=== PATIENT | female | born 1975 | race Caucasian/White ===

== ENCOUNTER → 2017-09-10 13:13 | Outpatient (CLI) | payer OTHER, SELFPAY ==
--- NOTE | 2017-09-10 13:46 | US_ITS ---
US transvaginal HISTORY: Check IUD position ITS.REASON: IUD position ORDERING PHYSICIAN: Ha Dean MD PATIENT AGE: 42 years COMPARISON: None FINDINGS: The uterus is retroverted. IUD is visualized within the endometrial canal area. Endometrium measures 8 mm. The uterus is 8 x 3 x 4.5 cm. Right ovary is 2.7 x 2 cm. Left ovary is 2.8 x 2.4 cm. No cul-de-sac fluid. IMPRESSION: Retroverted uterus with IUD in place otherwise negative pelvic ultrasound
--- NOTE | 2017-09-10 13:46 | MM_ITS ---
. MM Dig screening mamm BI w/CAD CAD Screening ORDERING PHYSICIAN : Ha Dean MD PATIENT AGE: 42 years GENDER: Female COMPARISON: No Previous mammograms: For comparison INDICATION: Routine screening. No hormones. IUD. No new complaints. No previous studies.. Family history. Maternal & paternal grandmother with breast cancer TECHNIQUE: Standard CC and MLO images were obtained. R2 CAD reviewed. FINDINGS:. Baseline screening mammogram with no previous for comparison Mild to moderately dense breast tissue distributed mainly towards superior aspect of left & right breast. Mild asymmetry but no areas of significant concern. This tissue seems to dissipate from the MLO to the CC views in keeping with benign fibroglandular tissue. No dominant mass. No suspicious calcifications. No architectural distortion.. I recommend bilateral follow-up in one year ====IMPRESSION:===== No areas of significant concern. Follow-up in one year recommended and encouraged to better establish and confirm baseline BI-RADS Category: 1 Negative RECOMMENDED FOLLOW-UP: 1YR - 1 YEAR FOLLOW-UP (A letter has been sent to the patient regarding results of the study.)
== END ==
PROVIDERS: Family Provider Physician Assistant; PCP Nurse Practitioner Family; Visit Provider Nurse Practitioner Obstetrics & Gynecology
DX: Z12.31 Encounter for screening mammogram for malignant neoplasm of breast (principal); Z97.5 Presence of (intrauterine) contraceptive device
CPT/HCPCS: 76830; 77067

== ENCOUNTER → 2018-01-06 11:44 | Outpatient (REF) | payer OTHER, SELFPAY ==
[2018-01-06 17:44] LABS: Basophils # 0.1 K/mm3 (0-0.2); Eosinophils # 0.1 K/mm3 (0.0-0.4); Eosinophils % 1.2 % (0.1-12.0); Hematocrit 44.1 % (37.0-47.0); Hemoglobin 13.7 g/dL (12.2-16.2); Lymphocytes # 2.6 K/mm3 (0.7-4.5); Lymphocytes % 26.9 K/mm3 (10-50); Mean Corpuscular HGB Conc 31.1 g/dL (31.8-35.4); Mean Corpuscular Hemoglobin 27.4 pg (27.0-31.2); Mean Corpuscular Volume 87.9 fl (81-99); Mean Platelet Volume 10.4 fl (7.4-10.4); Monocytes # 0.3 K/mm3 (0.1-1.0); Monocytes % 3.1 % (1.7-9.3); Neutrophils # 6.7 K/mm3 (1.8-7.8); Neutrophils % 67.9 % (37.0-80.0); Platelet Count 297 K/mm3 (142-424); Red Blood Count 5.01 M/mm3 (4.20-5.40); Red Cell Distribution Width 12.7 % (11.5-17.5); White Blood Count 9.8 K/mm3 (4.8-10.8)
[2018-01-06 18:38] LABS: Alanine Aminotransferase 25 U/L (12-78); Albumin Level 3.6 gm/dL (3.4-5.0); Albumin/Globulin Ratio 0.9 (1.1-1.8); Alkaline Phosphatase 128 U/L (46-116); Aspartate Amino Transferase 13 U/L (15-37); Bilirubin,Total 0.2 mg/dL (0.2-1.0); Blood Urea Nitrogen 6 mg/dL (7-18); Carbon Dioxide 27 mmol/L (21.0-32.0); Chloride 104 mmol/L (98-107); Cholesterol 151 mg/dL (140-200); Estimated Glomerular Filt Rate 110 ml/min (>60); Free Thyroxine Index 2.3 ug/dL (5.93-13.13); GFR (African American) 133 ML/MIN (>60); Globulin 3.9 gm/dl (1.3-3.2); Glucose 53 mg/dL (74-106); HDL Cholesterol 30 mg/dL (29-89); LDL Cholesterol 101 mg/dL (0-130); Sodium 139 mmol/L (136-145); T4 (Thyroxine) 7.6 ug/dl (4.7-13.3); Total Protein,Serum 7.5 gm/dL (6.4-8.2); Triglycerides 100 mg/dL (30-200); Triiodothryronine (T3) Uptake 30 % (31-39); VLDL Cholesterol 20 mg/dL (0-40)
[2018-01-08 17:10] LABS: FSH 6.8 mIU/mL (.); LH 4.5 mIU/mL (.); Vitamin D 25 Hydroxy 36.2 ng/mL (30.0-100.0)
[2018-01-13 06:14] LABS: Estrogen 157 pg/mL (.)
[2018-01-13 06:15] LABS: Testosterone, Total, LC/MS 28.3 ng/dL (.)
== END ==
LOC: LAB 11:44
PROVIDERS: Visit Provider Physician Assistant
DX: F32.9 Major depressive disorder, single episode, unspecified (principal)
CPT/HCPCS: 80053; 80061; 82652; 82672; 83001; 83002; 84403; 84436; 84443; 84479; 85025

== ENCOUNTER → 2018-07-26 17:53 | Outpatient (CLI) | payer OTHER, SELFPAY ==
[2018-07-26 18:06] LABS: Basophils # 0.1 K/mm3 (0-0.2); Basophils % 1.2 % (0.1-2.0); Eosinophils # 0.1 K/mm3 (0.0-0.4); Eosinophils % 1.1 % (0.1-12.0); Hematocrit 43.1 % (37.0-47.0); Lymphocytes # 2.6 K/mm3 (0.7-4.5); Lymphocytes % 25.8 % (10-50); Mean Corpuscular HGB Conc 32.5 g/dL (31.8-35.4); Mean Corpuscular Hemoglobin 28.2 pg (27.0-31.2); Mean Corpuscular Volume 86.8 fl (81-99); Mean Platelet Volume 10.1 fl (7.4-10.4); Monocytes # 0.4 K/mm3 (0.1-1.0); Monocytes % 3.6 % (1.7-9.3); Neutrophils # 6.8 K/mm3 (1.8-7.8); Neutrophils % 68.3 % (37.0-80.0); Platelet Count 305 K/mm3 (142-424); Red Blood Count 4.96 M/mm3 (4.20-5.40); Red Cell Distribution Width 13.3 % (11.5-17.5); White Blood Count 9.9 K/mm3 (4.8-10.8)
[2018-07-26 21:51] LABS: Alanine Aminotransferase 26 U/L (12-78); Albumin Level 3.5 gm/dL (3.4-5.0); Albumin/Globulin Ratio 0.9 (1.1-1.8); Alkaline Phosphatase 140 U/L (46-116); Aspartate Amino Transferase 10 U/L (15-37); Bilirubin,Total 0.3 mg/dL (0.2-1.0); Blood Urea Nitrogen 8 mg/dL (7-18); Calcium 9.6 mg/dL (8.5-10.1); Carbon Dioxide 25 mmol/L (21.0-32.0); Chloride 102 mmol/L (98-107); Chol/HDL Ratio 5.1 (1-3.5); Cholesterol 149 mg/dL (140-200); Creatinine,Serum 0.59 mg/dL (0.55-1.02); Estimated Glomerular Filt Rate 111 ml/min (>60); GFR (African American) 135 ML/MIN (>60); Glucose 94 mg/dL (74-106); HDL Cholesterol 29 mg/dL (29-89); LDL Cholesterol 100 mg/dL (0-130); Sodium 138 mmol/L (136-145); T4 (Thyroxine) 8.5 ug/dl (4.7-13.3); Thyroid Stimulating Hormone 2.92 uIU/ml (0.358-3.740); Total Protein,Serum 7.5 gm/dL (6.4-8.2); Triglycerides 100 mg/dL (30-200); VLDL Cholesterol 20 mg/dL (0-40)
[2018-07-28 08:44] LABS: Vitamin D 25 Hydroxy 36.6 ng/mL (30.0-100.0)
[2018-07-29 06:13] LABS: Vitamin B12 443 pg/mL (232-1245)
== END ==
PROVIDERS: Visit Provider Physician Assistant
DX: F41.9 Anxiety disorder, unspecified (principal); M25.552 Pain in left hip
CPT/HCPCS: 80053; 80061; 82607; 82652; 84436; 84443; 85025

== ENCOUNTER → 2019-01-26 13:41 | Outpatient (CLI) | payer OTHER, SELFPAY ==
[2019-01-26 14:28] LABS: Alanine Aminotransferase 17 U/L (12-78); Albumin Level 3.1 gm/dL (3.4-5.0); Albumin/Globulin Ratio 0.8 (1.1-1.8); Alkaline Phosphatase 117 U/L (46-116); Anion Gap 12.2 mEq/L (5-15); Aspartate Amino Transferase 8 U/L (15-37); Bilirubin,Total 0.2 mg/dL (0.2-1.0); Blood Urea Nitrogen 5 mg/dL (7-18); Calcium 9.1 mg/dL (8.5-10.1); Carbon Dioxide 25 mmol/L (21.0-32.0); Chloride 106 mmol/L (98-107); Chol/HDL Ratio 4.8 (1-3.5); Cholesterol 135 mg/dL (140-200); Creatinine,Serum 0.53 mg/dL (0.55-1.02); Estimated Glomerular Filt Rate 126 ml/min (>60); GFR (African American) 152 ML/MIN (>60); Globulin 3.9 gm/dl (1.3-3.2); Glucose 82 mg/dL (74-106); HDL Cholesterol 28 mg/dL (29-89); LDL Cholesterol 87 mg/dL (0-130); Potassium 4.2 mmoL/L (3.5-5.1); Sodium 139 mmol/L (136-145); T4 (Thyroxine) 6.2 ug/dl (4.7-13.3); Thyroid Stimulating Hormone 7.28 uIU/ml (0.358-3.740); Triglycerides 102 mg/dL (30-200); VLDL Cholesterol 20 mg/dL (0-40)
[2019-01-28 06:13] LABS: Vitamin B12 397 pg/mL (232-1245); Vitamin D 25 Hydroxy 38.1 ng/mL (30.0-100.0)
[2019-01-28 06:14] LABS: Folate 6.8 ng/mL (>3.0)
== END ==
PROVIDERS: Visit Provider Physician Assistant
DX: F32.9 Major depressive disorder, single episode, unspecified (principal)
CPT/HCPCS: 80053; 80061; 82607; 82652; 82746; 84436; 84443

== ENCOUNTER → 2019-04-20 11:05 | Outpatient (CLI) | payer OTHER, SELFPAY ==
--- NOTE | 2019-04-20 11:14 | XR_ITS ---
PROCEDURE: XR FOOT LT MIN 3V CLINICAL INDICATION: Left foot pain Lateral foot pain and bruising COMPARISON: XR FOOT LT MIN 3V from 04/12/2019 FINDINGS: No fracture or dislocation. No lytic or blastic change. There is normal mineralization. The joint spaces are well-preserved. No significant degenerative/arthritic changes. No erosive changes evident. Other findings:None. IMPRESSION: No acute findings. Dictated by: Max Gray MD 04/20/2019 13:00 Electronically signed by Max Gray MD in [place] 04/20/2019 13:00
== END ==
PROVIDERS: PCP Emergency Medicine; Visit Provider Physician Assistant
DX: M79.672 Pain in left foot (principal); R06.2 Wheezing
CPT/HCPCS: 73630

== ENCOUNTER 2019-04-20 11:14 | Outpatient (RCR) | payer OTHER, SELFPAY | END 2019-04-20 11:30 | disposition home or self-care (01) | LOC: PT 11:14 | PROVIDERS: Visit Provider Emergency Medicine | DX: M25.572 Pain in left ankle and joints of left foot (principal) | CPT/HCPCS: 97760 ==

== ENCOUNTER → 2019-05-02 13:38 | Outpatient (CLI) | payer OTHER, SELFPAY ==
[2019-05-02 14:35] VITALS: PULSE 79; PULSE 80
== END ==
PROVIDERS: PCP Physician Assistant; Visit Provider Physician Assistant
DX: R06.2 Wheezing (principal)
CPT/HCPCS: 94060; 94640

== ENCOUNTER → 2019-07-07 07:22 | Outpatient (CLI) | payer OTHER, SELFPAY ==
--- NOTE | 2019-07-07 | CA_ITS ---
APPROVED REPORT Exam: Pharmacologic Technologist: Usha Ornelas, Ht: 5 ft 5 in Wt: 190 lbs BSA: 1.94 m2 HR: 70 bpm BP: 124/83 mmHg Rhythm: NSR Medical History Medical History: HTN, Hyperlipidemia, No history of CAD Medications: Lisinopril,,,,, Levothyroxine,,,,, Asa,,,,, Lexapro,,,,, Atorvastatin,,,,, Plavix,,,,, Allergies: latex Cardiac Risk Factors: HTN, Hyperlipidemia, FHX of CAD, Smoking Stress Test Details Test: LEXISCAN HR Resting HR: 84 bpm Max Heart Rate (APMHR): 176 bpm Max HR Achieved: 115 bpm Target HR (85% APMHR): 149 bpm % of APMHR: 65 Recovery HR: 98 bpm BP Resting BP: 124/83 mmHg Max BP: 133/79 mmHg Recovery BP: 123.0/77.0 mmHg ECG Resting ECG: NORMAL SINUS RHYTHM Clinical Reason for Termination: Completed Protocol Exercise duration: 04:01 min Highest Stage Achieved: Exercise capacity: 1.0 METs Stress ECG Conclusion LEXISCAN INFUSION COMPLETED. NO CHEST OR ARRHYTHMIAS. < 1.5MM ST SEGMENT DEPRESSION/CHANGES. NON-DIAGNOSTIC. Test Summary REST . . . . . . . Sitting REST . . . . . . . Sitting REST 05:40 . . 84 . 124/ 83 . . Stage 1 . . . . . . . Cardiolite injected Stage 1 01:00 . . 111 . . . . Stage 2 01:00 . . 112 . 125/ 78 . . Stage 3 01:00 . . 107 . 128/ 79 . . Stage 4 01:00 . . 103 . . . . Stage 4 01:01 . . 102 . . . Stop exercise at 04:01 RECOVERY 01:00 . . 92 . . . . RECOVERY 02:00 . . 85 . 133/ 79 . . RECOVERY 03:00 . . 89 . 125/ 86 . . RECOVERY 04:00 . . 90 . 125/ 86 . . RECOVERY 04:30 . . 79 . 133/ 87 . . Electronically signed by : Miguel Ángel Roman, 07/07/2019 12:45:32
--- NOTE | 2019-07-07 07:23 | CA_ITS ---
APPROVED REPORT EXAM: Comprehensive 2D, Doppler, and color-flow Echocardiogram Cut Tobacco Bulker: Traci Dobbs RVT Ht: 5 ft 5 in Wt: 200lbs BSA: 1.98 BP: 138/80 mmHg Indications: Chest Pain, COPD, Shortness of Breath, Dyspnea, Hyperlipidemia, Hypertension,Abn EKG, Smoker,Hx NE,GERD 2D Dimensions LVOT 1.65 cm (M/F) 1.5-2.5 M-Mode Dimensions RVDd 1.82 cm (0.9-2.6) LVDd 4.64 cm (3.5-5.7) LVDs 3.08 cm (3.5-5.7) IVSd 0.68 cm (0.6-1.1) PWd 0.84 cm (0.6-1.1) EF (Teich) 62.40% FS 33.60% EDV (Teich) 99.30 mL ESV (Teich) 37.30 mL LV Diastology E/A Ratio 0.71 Mitral Valve MV A Velocity 83.00 (40-130 cm/s) Left Ventricle Left atrium is mildly enlarged, left ventricle is normal size, mild concentric left ventricular hypertrophy, visually estimated ejection fraction 45%, there is moderate hypokinesis involving the distal septum and anterior apical wall, inferior basal wall. Grade 1 diastolic dysfunction seen without tissue Doppler evidence of raise left atrial pressure. Right Ventricle Right atrium and right ventricular normal size and contractility. Aortic Valve Aortic valve is minimally thickened and fibrosed, there is no aortic stenosis or aortic insufficiency. Mitral Valve Mitral valve is grossly normal, there is mild mitral regurgitation. Tricuspid Valve Tricuspid valve is grossly normal, there is mild tricuspid regurgitation. Pulmonic Valve Pulmonic valve is poorly visualized. Great Vessels Aortic root is normal size. Pericardium No significant pericardial effusion noted. Conclusion 1. Mildly enlarged left atrium, normal left ventricular size, mild concentric left ventricular hypertrophy, visually estimated ejection fraction 45% with multiple segmental wall motion abnormalities described above, grade 1 diastolic dysfunction seen without tissue Doppler evidence of raise left atrial pressure. 2. Mild mitral and tricuspid regurgitation. 3. No significant pericardial effusion noted. Electronically signed by : Miguel Ángel Roman, 07/08/2019 19:10:48
--- NOTE | 2019-07-07 07:28 | NM_ITS ---
APPROVED REPORT Exam: Nuclear Stress Test Indication: chest pain and short of breath Patient Location: Outpatient Stress Tech: Anju Ceci [place] Tech:EMILIE Cartagena RT(R)(N) Ht: 5 ft 5 in Wt: 190 lbs Bra Size: 38d HR: 70 bpm BP: 124/83 mmHg BSA: 1.94 m2 BMI: 31.6 History: chest pain and short of breath Procedure: Patient received a 0.4 mg of intravenous Lexiscan, resting heart rate 70 bpm, resting blood pressure 124/83 mmHg, with Lexiscan maximum heart rate achived was 110 bpm which is Less than 85 % of the maximum predicted heart rate and blood pressure was 125/78 mmHg. With Lexiscan, patient denied any complaint of chest pain. Electrocardiogram Resting electrocardiogram showed sinus rhythm, with Lexiscan there is less than 1.[address] segment depression noted from the baseline EKG. The EKG portion of the Lexiscan Myoview is nondiagnostic. Cardiac Stress and Resting SPECT Images: Cardiac Stress and Resting SPECT images were obtained using technetium 99m Myoview 31.2 mCi stress and 10.65 mCi at rest. Gated SPECT with analysis of segmental wall motion and calculation of the ejection fraction also done. Cardiac stress and resting SPECT images show a fixed defect involving the inferior apical and apical wall consistent with area of myocardial scarring without significant jeb-infarct ischemia. Computer derived ejection fraction is over 65% with mild inferior apical wall hypokinesis. Right ventricle is normal size and contractility. Conclusion: 1. The EKG portion of the Lexiscan Myoview is nondiagnostic. 2. Scintigraphic evidence of small area of myocardial scarring involving the inferior apical and apical wall. Computer derived ejection fraction is over 65% with segmental wall motion abnormality described above, right ventricle is normal size and contractility. 3. Abnormal Lexiscan Myoview study. Electronically signed by : Miguel Ángel Roman, 07/07/2019 12:48:29
--- NOTE | 2019-07-07 09:49 | HMH.ITSHM ---
Current Home Medications as stated by this patient Radha Gonzalez or cash applications representative. [] lisinopril atorvastatin plavix ASA LEVOTHYROXINE LEXAPRO CLOZAPINE
== END ==
PROVIDERS: PCP Physician Assistant; Visit Provider Internal Medicine Cardiovascular Disease
DX: R07.2 Precordial pain (principal); R00.2 Palpitations; R06.09 Other forms of dyspnea; R60.9 Edema, unspecified; R94.31 Abnormal electrocardiogram [ECG] [EKG]; E66.9 Obesity, unspecified; E78.49 Other hyperlipidemia; I10 Essential (primary) hypertension; K21.9 Gastro-esophageal reflux disease without esophagitis; F32.1 Major depressive disorder, single episode, moderate; F41.9 Anxiety disorder, unspecified; I25.2 Old myocardial infarction
CPT/HCPCS: 78452; 93017; 93306; A9502; J2785

== ENCOUNTER → 2019-07-14 13:39 | Outpatient (CLI) | payer OTHER, SELFPAY ==
[2019-07-14 15:29] LABS: Anion Gap 15.3 mEq/L (5-15); Blood Urea Nitrogen 9 mg/dL (7-18); Calcium 9.1 mg/dL (8.5-10.1); Carbon Dioxide 26 mmol/L (21.0-32.0); Chloride 104 mmol/L (98-107); Creatinine,Serum 0.75 mg/dL (0.55-1.02); Estimated Glomerular Filt Rate 84 ml/min (>60); GFR (African American) 102 ML/MIN (>60); Glucose 79 mg/dL (74-106); Potassium 4.3 mmoL/L (3.5-5.1); Sodium 141 mmol/L (136-145)
== END ==
PROVIDERS: Visit Provider Internal Medicine Cardiovascular Disease
DX: R07.9 Chest pain, unspecified (principal); R00.2 Palpitations; R06.00 Dyspnea, unspecified
CPT/HCPCS: 36415; 80048

== ENCOUNTER → 2019-08-16 13:52 | Outpatient (CLI) | payer OTHER, SELFPAY ==
[2019-08-16 15:36] LABS: Anion Gap 10.7 mEq/L (5-15); Blood Urea Nitrogen 6 mg/dl (7-17); Calcium 9.9 mg/dl (8.4-10.2); Carbon Dioxide 28 mmol/L (22.0-30.0); Chloride 99 mmol/L (98-107); Estimated Glomerular Filt Rate 91 ml/min (>60); GFR (African American) 110 ML/MIN (>60); Glucose 95 mg/dl (74-100); Potassium 3.7 mmoL/L (3.5-5.1); Sodium 134 mmol/L (136-145)
[2019-08-16 15:44] LABS: NT Pro Brain Natriuretic Pep. 50.8 pg/mL (0-125)
== END ==
LOC: LAB 13:53 → SL 14:06
PROVIDERS: PCP Physician Assistant; Visit Provider Internal Medicine Cardiovascular Disease
DX: I10 Essential (primary) hypertension (principal); E78.5 Hyperlipidemia, unspecified; R06.00 Dyspnea, unspecified; E66.9 Obesity, unspecified; I25.2 Old myocardial infarction; G47.33 Obstructive sleep apnea (adult) (pediatric); R06.83 Snoring; R40.0 Somnolence; R63.5 Abnormal weight gain
CPT/HCPCS: 36415; 80048; 83880; 95806

== ENCOUNTER → 2019-09-01 12:20 | Outpatient (CLI) | payer OTHER, SELFPAY ==
--- NOTE | 2019-09-01 12:38 | US_ITS ---
PROCEDURE: US THYROID CLINICAL INDICATION: enlarged thyroid Enlarged thyroid gland COMPARISON: No exams were available for comparison FINDINGS: Right lobe is 6.5 x 2.2 x 1.9 cm with diffuse heterogeneous echogenicity. There are multiple nodules present. A 17 by 19 x 12 mm hypoechoic nodules present in the upper pole which appears solid and well circumscribed. In the lower pole there is a 15 mm slightly hyperechoic nodule which is well-circumscribed. The left lobe is 5.5 x 1.9 x 2.2 cm. In the upper pole there is a 13 x 5 mm hypoechoic nodule posteriorly. The isthmus is enlarged at 8 mm. IMPRESSION: Heterogeneous enlarged thyroid gland consistent with goiter with 2 nodules on the right and 1 on the left the largest nodule on the right is a T rads level 4 moderately suspicious greater than 1.5 cm. Fine-needle aspiration with ultrasound guidance suggested Dictated by: Max Gray MD 09/01/2019 14:28 Electronically signed by Max Gray MD in [place] 09/01/2019 14:28
[2019-09-01 16:32] LABS: T4 (Thyroxine) 8.8 ug/dl (5.53-11.0)
[2019-09-01 16:45] LABS: Thyroid Stimulating Hormone 3.72 uIU/mL (0.465-4.68)
== END ==
PROVIDERS: PCP Physician Assistant; Visit Provider Nurse Practitioner Family
DX: E03.9 Hypothyroidism, unspecified (principal); E04.9 Nontoxic goiter, unspecified; E66.9 Obesity, unspecified; G47.33 Obstructive sleep apnea (adult) (pediatric); R53.83 Other fatigue; I49.9 Cardiac arrhythmia, unspecified
CPT/HCPCS: 36415; 76536; 84436; 84443

== ENCOUNTER → 2019-12-08 09:41 | Outpatient (CLI) | payer OTHER, SELFPAY ==
--- NOTE | 2019-12-08 09:46 | US_ITS ---
PROCEDURE: US FNA THYROID CLINICAL INDICATION: THYROID NODULE COMPARISON: No exams were available for comparison TECHNIQUE: Following obtaining informed consent, using aseptic technique and local anesthesia with buffered lidocaine, fine-needle aspiration was performed of the nodule of interest in the right lobe of the thyroid gland using sonographic guidance. 3 passes were made into the nodule with a 21-gauge needle. Specimen was given to cytology. FINDINGS: CYTOLOGY: Benign follicular nodule IMPRESSION: FNA demonstrates the solid-appearing nodule in the right lobe of the thyroid gland represent a benign follicular nodule. The patient tolerated the procedure well without evidence of immediate complications and left the ultrasound suite in stable condition. Dictated b Max Gray MD 01/26/2020 17:49 Mxa Gray MD in [place] 01/26/2020 17:49
== END ==
PROVIDERS: PCP Physician Assistant; Visit Provider Otolaryngology
DX: E04.1 Nontoxic single thyroid nodule (principal)
CPT/HCPCS: 10005; 76942

== ENCOUNTER 2021-01-07 10:51 | Emergency (ER) | payer OTHER, SELFPAY ==
[2021-01-07] VITALS (8 sets, daily range): BP systolic 103–163; BP diastolic 63–81; PULSE 60–86; RESP 18–21; TEMP 36.7; O2SAT 93–99; BMI 31.6
--- NOTE | 2021-01-07 11:02 | ECG_ITS ---
APPROVED REPORT Exam: Resting ECG HR:85 bpm ECG Measurements Heart Rate 85 AXES WY 158 P 53 QRSd 82 QRS 0 QT 360 T 28 QTc 428 Conclusion Normal sinus rhythm Low voltage QRS Borderline ECG Electronically signed by : Gomez Liang, 01/07/2021 22:08:55
--- NOTE | 2021-01-07 11:11 | XR_ITS ---
PROCEDURE: XR CHEST 2V CLINICAL HISTORY: chest pressure COMPARISON: No exams were available for comparison FINDINGS: The cardiomediastinal silhouette and pulmonary vascularity are within normal limits. The lungs are clear without infiltrates, suspicious nodules, or pleural effusions. No acute bony abnormalities. IMPRESSION: No acute findings. Dictated by: Cindy Forman 01/07/2021 11:43 Cindy Forman in [place] 01/07/2021 11:43
--- NOTE | 2021-01-07 11:24 | HMH.EDGENADL ---
ED Disposition Clinical Impression: Chest pain Qualifiers: Chest pain type: unspecified Qualified Code(s): R07.9 - Chest pain, unspecified Disposition: Home, Self-Care Condition on Discharge: Good Instructions: DI for Atypical Chest Pain Referrals: Kylie Cooley PA [Primary Care Provider] - - Critical Care Critical Care Time: No Attestation: On 01/07/21, the high probability of a clinically significant, sudden or life threatening deterioration of the following system(s) required my full and direct attention, intervention and personal management. The time I documented below is in addition to time spent performing reported procedures but includes the following listed in this critical care notation. Medical Decision Making - Medical Records Medical records reviewed: Yes: I reviewed the patient's medical records. - Dereck Inquiry Pt receiving controlled substance: No Vital Signs: 01/07/21 11:03 01/07/21 11:15 01/07/21 14:21 Temperature 98.0 F Temperature Source Oral Pulse Rate 84 73 Pulse Rate [Left Radial] 60 Respiratory Rate 18 21 Blood Pressure 127/81 Blood Pressure [Right Arm] 163/63 H Blood Pressure Mean 96 Blood Pressure Mean [Right Arm] 96 Blood Pressure Source Blood Pressure Source [Right Arm] Automatic Cuff Blood Pressure Position Blood Pressure Position [Right Arm] Sitting 02 Sat by Pulse Oximetry 99 93 L 97 Oxygen Delivery Method Room Air 01/07/21 14:30 01/07/21 15:01 01/07/21 15:30 Temperature Temperature Source Pulse Rate 75 71 86 Pulse Rate [Left Radial] Respiratory Rate 18 Blood Pressure 124/79 103/72 L 109/78 L Blood Pressure [Right Arm] Blood Pressure Mean 92 82 85 Blood Pressure Mean [Right Arm] Blood Pressure Source Blood Pressure Source [Right Arm] Blood Pressure Position Blood Pressure Position [Right Arm] 02 Sat by Pulse Oximetry 97 96 97 Oxygen Delivery Method Room Air 01/07/21 16:00 01/07/21 16:04 Temperature 98.0 F Temperature Source Oral Pulse Rate 78 78 Pulse Rate [Left Radial] Respiratory Rate 18 Blood Pressure 119/80 119/80 Blood Pressure [Right Arm] Blood Pressure Mean 93 Blood Pressure Mean [Right Arm] Blood Pressure Source Automatic Cuff Blood Pressure Source [Right Arm] Blood Pressure Position Sitting Blood Pressure Position [Right Arm] 02 Sat by Pulse Oximetry 98 Oxygen Delivery Method Room Air - Lab Data Lab Results 01/07/21 11:25: WBC 11.1 H, RBC 5.01, Hgb 14.3, Hct 42.8, MCV 85.3, MCH 28.5, MCHC 33.4, RDW 13.7, Plt Count 302, MPV 9.8, Neut % (Auto) 68.4, Lymph % (Auto) 25.9, Sandoval % (Auto) 3.1, Eos % (Auto) 0.8, Baso % (Auto) 1.7, Neut # (Auto) 7.6, Lymph # (Auto) 2.9, Sandoval # (Auto) 0.4, Eos # (Auto) 0.1, Baso # (Auto) 0.2 01/07/21 11:25: Sodium 139, Potassium 3.7, Chloride 105, Carbon Dioxide 27, Anion Gap 10.7, BUN 7, Creatinine 0.50 L, Estimated Creat Clear 193, Estimated GFR 133, Est GFR ( Amer) 161, Glucose 96, Calcium 9.2, Troponin I < 0.01 01/07/21 11:25: D-Dimer 0.41 01/07/21 14:10: Troponin I < 0.01 Result diagrams: 01/07/21 11:25 01/07/21 11:25 Orders (Tests/Meds): ED MEDICATIONS Discontinued Medications Generic Name Dose Route Start Last Admin Trade Name Shona PRN Reason Stop Dose Admin Aspirin 324 mg 01/07/21 11:11 01/07/21 11:28 Aspirin 81mg Chewable Tablet PO 01/07/21 11:12 324 mg ONCE ONE Administration Medical Decision Narrative: Patient to the ED today with chest pain and pressure. Differential diagnosis includes anxiety, ACS, pulmonary embolism, pneumonia, pericarditis, pericardial effusion. Patient's EKG interpreted shortly after arrival, normal sinus rhythm with no evidence of T wave inversion or ST elevation or depression, low concern for ischemia. Will order CBC CMP troponin 0 and 3-hour evaluation, chest x-ray, D-dimer. Patient offered pain medication and denies at this time, will continue to reasses
[2021-01-07 12:33] LABS: Basophils # 0.2 K/mm3 (0-0.2); Basophils % 1.7 % (0.1-2.0); Eosinophils # 0.1 K/mm3 (0.0-0.4); Eosinophils % 0.8 % (0.1-12.0); Hematocrit 42.8 % (37.0-47.0); Hemoglobin 14.3 g/dL (12.2-16.2); Lymphocytes # 2.9 K/mm3 (0.7-4.5); Lymphocytes % 25.9 % (10-50); Mean Corpuscular HGB Conc 33.4 g/dL (31.8-35.4); Mean Corpuscular Hemoglobin 28.5 pg (27.0-31.2); Mean Corpuscular Volume 85.3 fl (81-99); Mean Platelet Volume 9.8 fl (7.4-10.4); Monocytes # 0.4 K/mm3 (0.1-1.0); Monocytes % 3.1 % (1.7-9.3); Neutrophils # 7.6 K/mm3 (1.8-7.8); Neutrophils % 68.4 % (37.0-80.0); Platelet Count 302 K/mm3 (142-424); Red Blood Count 5.01 M/mm3 (4.20-5.40); Red Cell Distribution Width 13.7 % (11.5-17.5); White Blood Count 11.1 K/mm3 (4.8-10.8)
[2021-01-07 12:41] LABS: Chloride 105 mmol/L (98-107); Potassium 3.7 mmoL/L (3.5-5.1); Sodium 139 mmol/L (136-145)
[2021-01-07 12:44] LABS: Blood Urea Nitrogen 7 mg/dl (7-17); Carbon Dioxide 27 mmol/L (22.0-30.0); Creatinine Clearance Estimated 193 mL/min (50-200); Estimated Glomerular Filt Rate 133 ml/min (>60); GFR (African American) 161 ML/MIN (>60)
[2021-01-07 12:45] LABS: Calcium 9.2 mg/dl (8.4-10.2); Glucose 96 mg/dl (74-100)
[2021-01-07 12:48] LABS: D-Dimer 0.41 ug/mL (0.0-0.5)
[2021-01-07 13:00] LABS: Troponin I < 0.01 ng/ml (0.00-0.034)
[2021-01-07 14:09] LABS: Anion Gap 10.7 mEq/L (5-15)
[2021-01-07 14:45] LABS: Troponin I < 0.01 ng/ml (0.00-0.034)
== END 2021-01-07 16:11 | disposition home or self-care (01) ==
PROVIDERS: Emergency Provider Student in an Organized Health Care Education/Training Program; PCP Physician Assistant
DX: R07.9 Chest pain, unspecified (principal); J44.9 Chronic obstructive pulmonary disease, unspecified; F41.8 Other specified anxiety disorders; K21.9 Gastro-esophageal reflux disease without esophagitis; E78.5 Hyperlipidemia, unspecified; I10 Essential (primary) hypertension; E03.9 Hypothyroidism, unspecified; I25.2 Old myocardial infarction; Z79.899 Other long term (current) drug therapy
CPT/HCPCS: 36415; 71046; 80048; 84484; 85025; 85378; 93005; 99283

== ENCOUNTER 2021-05-24 21:55 | Emergency (ER) | payer OTHER, SELFPAY ==
[2021-05-24 21:56] VITALS: BP 142/93; PULSE 86; RESP 18; TEMP 36.9; O2SAT 96; BMI 31.6
--- NOTE | 2021-05-24 22:25 | HMH.EDEPIS ---
ED Disposition Clinical Impression: Epistaxis Disposition: Home, Self-Care Condition on Discharge: Good Instructions: DI for Nosebleed Additional Instructions: sit upper right tonight and remove packing in am Referrals: Kylie Cooley PA [Primary Care Provider] - - Critical Care Critical Care Time: No Attestation: On 05/24/21, the high probability of a clinically significant, sudden or life threatening deterioration of the following system(s) required my full and direct attention, intervention and personal management. The time I documented below is in addition to time spent performing reported procedures but includes the following listed in this critical care notation. Medical Decision Making - Medical Records Medical records reviewed: Yes: I reviewed the patient's medical records. - Dereck Inquiry Pt receiving controlled substance: No Vital Signs: 05/24/21 21:56 Temperature 98.4 F Temperature Source Oral Pulse Rate [Right] 86 Respiratory Rate 18 Blood Pressure [Right Arm] 142/93 H Blood Pressure Mean [Right Arm] 109 02 Sat by Pulse Oximetry 96 Epistaxis HPI - General Chief complaint: Epistaxis Stated complaint: NOSE BLEED Time Seen by Provider: 05/24/21 22:05 Mode of Arrival: Ambulatory Source of Information: Patient, Medical Record Limitations: No Limitations Description of Symptoms (Recalled from ER Triage Doc. by RN): pt c/o nosebleed that started 2 hrs ago - History of Present Illness HPI Narrative: atraumatic bilat nosebleed tonight on dual platelet therapy complaint: epistaxis Location: bilateral nostril Onset (ago): hour(s) Duration: intermittent Context: aspirin use Treatment prior to arrival: nose pinching - Related Data Previous Rx's Medication Instructions Recorded clopidogrel 75 mg tablet See Rx Instructions .ROUTE 09/19/20 .COMPLEX #90 tab aspirin 81 mg chewable tablet See Rx Instructions .ROUTE 12/19/20 .COMPLEX #90 tab atorvastatin 20 mg tablet 20 mg PO DAILY #30 tab 12/19/20 levothyroxine 50 mcg tablet See Rx Instructions .ROUTE 12/19/20 .COMPLEX #90 tab losartan 100 0.5 tab PO Q OTHER DAY #14 tab 02/22/21 mg-hydrochlorothiazide 25 mg tablet clonazepam 0.5 mg tablet 0.5 mg PO BID #60 tab 05/06/21 escitalopram oxalate 10 mg tablet 10 mg PO DAILY #90 tab 05/06/21 hydroxyzine HCl 25 mg tablet 25 mg PO TID PRN #90 tab 05/21/21 Allergies Allergy/AdvReac Type Severity Reaction Status Date / Time latex Allergy Unknown I-RASH Verified 04/09/21 11:41 [facility] History - Hepatitis A Screen Drug use history?: No High risk sexual behaviors?: No History of sexually transmitted infection?: No Currently employed?: No Childcare worker?: No Do you have indoor plumbing?: Yes Do you have electricity?: Yes Attestation statement:: This patient has been screened for Hepatitis A risk factors. I have reviewed the patient's past medical history: Yes Medical History: Reports:: Anxiety, Chronic Obstructive Pulmonary Disease (COPD), Deep Vein Thrombosis, Depression, Gastroesophageal Reflux Disease(GERD), Hyperlipidemia, Hypertension, Myocardial Infarction Denies:: Diabetes Mellitus Type 1, Diabetes Mellitus Type 2 Other Medical History: Reports: Hypothyroidism, Thyroid Disease Comment: heart attack, 2009 Other Surgeries: Yes: Cardiac Catheterization Amputation: No Fractures: No Comment: Heart Cath 2009 - Social History Smoking Status: Current every day smoker Tobacco Type: cigarettes # Packs/Day (cigarettes): 1 Alcohol Intake: never Alcohol Intake Frequency:: holidays/special occasions only Substance Use Type: denies use Occupational Status: employed Housing: house Household Members: spouse - Psychiatric History Pschychiatric History:: Reports:: Anxiety, Depression Family Hx:: Cancer, Diabetes, Hypertension, Hyperlipidemia, Thyroid Disorder, Heart Attack, Stroke Comment: Sister-OK with stent @44. Mother-Cancer ROS Obtained: Yes All systems reviewed
[2021-05-24 23:30] VITALS: BP 135/80; PULSE 75; RESP 18; TEMP 36.8; O2SAT 98
== END 2021-05-24 23:40 | disposition home or self-care (01) ==
PROVIDERS: Emergency Provider Emergency Medicine; PCP Physician Assistant
DX: R04.0 Epistaxis (principal); K21.9 Gastro-esophageal reflux disease without esophagitis; J44.9 Chronic obstructive pulmonary disease, unspecified; F17.210 Nicotine dependence, cigarettes, uncomplicated; F41.8 Other specified anxiety disorders; E03.9 Hypothyroidism, unspecified; Z79.899 Other long term (current) drug therapy
CPT/HCPCS: 30901; 99281

== ENCOUNTER → 2021-07-16 13:47 | Outpatient (CLI) | payer OTHER, SELFPAY ==
[2021-07-16 14:29] LABS: Basophils # 0.2 K/mm3 (0-0.2); Basophils % 1.6 % (0.1-2.0); Eosinophils # 0.1 K/mm3 (0.0-0.4); Eosinophils % 1.1 % (0.1-12.0); Hematocrit 46.9 % (37.0-47.0); Hemoglobin 14.7 g/dL (12.2-16.2); Lymphocytes # 2.8 K/mm3 (0.7-4.5); Lymphocytes % 23.9 % (10-50); Mean Corpuscular HGB Conc 31.4 g/dL (31.8-35.4); Mean Corpuscular Hemoglobin 28.8 pg (27.0-31.2); Mean Corpuscular Volume 91.8 fl (81-99); Mean Platelet Volume 11.5 fl (7.4-10.4); Monocytes # 0.4 K/mm3 (0.1-1.0); Monocytes % 3.3 % (1.7-9.3); Neutrophils # 8.1 K/mm3 (1.8-7.8); Platelet Count 369 K/mm3 (142-424); Red Blood Count 5.11 M/mm3 (4.20-5.40); Red Cell Distribution Width 13.7 % (11.5-17.5); White Blood Count 11.5 K/mm3 (4.8-10.8)
[2021-07-16 15:55] LABS: Alanine Aminotransferase 16 U/L (12-78); Albumin Level 4.2 g/dl (3.5-5.0); Albumin/Globulin Ratio 1.2 (1.1-1.8); Alkaline Phosphatase 98 U/L (38-126); Anion Gap 12.6 mEq/L (5-15); Aspartate Amino Transferase 22 U/L (14-36); Bilirubin,Total 0.4 mg/dl (0.2-1.3); Blood Urea Nitrogen 8 mg/dl (7-17); Calcium 9.7 mg/dl (8.4-10.2); Carbon Dioxide 25 mmol/L (22.0-30.0); Chloride 102 mmol/L (98-107); Chol/HDL Ratio 5.2 (1-3.5); Cholesterol 167 mg/dl (140-200); Estimated Glomerular Filt Rate 108 ml/min (>60); GFR (African American) 130 ML/MIN (>60); Globulin 3.4 g/dL (1.3-3.2); Glucose 95 mg/dl (74-100); HDL Cholesterol 32 mg/dl (40-60); Potassium 3.6 mmoL/L (3.5-5.1); Sodium 136 mmol/L (136-145); Total Protein,Serum 7.6 g/dl (6.3-8.2); Triglycerides 163 mg/dl (30-150); VLDL Cholesterol 33 mg/dL (0-40)
[2021-07-16 16:06] LABS: Direct LDL Cholesterol 114.58 mg/dL (100-129)
[2021-07-16 16:11] LABS: 25-OH Vitamin D, Total 24.2 ng/mL (30-100)
== END ==
PROVIDERS: Visit Provider Physician Assistant
DX: E03.9 Hypothyroidism, unspecified (principal); E55.9 Vitamin D deficiency, unspecified; Z79.899 Other long term (current) drug therapy
CPT/HCPCS: 80053; 80061; 82306; 84443; 85025

== ENCOUNTER → 2021-10-08 12:04 | Outpatient (CLI) | payer OTHER, SELFPAY ==
--- NOTE | 2021-10-08 12:07 | XR_ITS ---
FINAL REPORT CLINICAL HISTORY: bilateral knee pain FINDINGS: RIGHT KNEE 4 views were obtained. There is no acute fracture or dislocation. The joint spaces are intact. There is no soft tissue abnormality. IMPRESSION: No acute bony abnormality. Reviewed, Interpreted and Dictated by Harley Valera III, MD Transcribed by Maddie Hills Authenticated by Harley aVlera III, MD on 10/08/2021 02:02:54 PM [facility]
--- NOTE | 2021-10-08 12:07 | XR_ITS ---
FINAL REPORT CLINICAL HISTORY: bilateral knee pain COMPARISON: 04/12/2019 FINDINGS: LEFT KNEE 4 views were obtained. There is no acute fracture or dislocation. The joint spaces are intact. There is no soft tissue abnormality. IMPRESSION: No acute bony abnormality. Reviewed, Interpreted and Dictated by Harley Valera III, MD Transcribed by Maddie Hills Authenticated by Harley Valera III, MD on 10/08/2021 02:02:53 PM [facility]
== END ==
PROVIDERS: PCP Physician Assistant; Visit Provider Physician Assistant
DX: M25.562 Pain in left knee (principal); M25.561 Pain in right knee
CPT/HCPCS: 73564

== ENCOUNTER → 2022-01-03 06:11 | Outpatient (CLI) | payer OTHER, SELFPAY ==
[2022-01-02 17:26] LABS: Basophils # 0.1 K/mm3 (0-0.2); Eosinophils # 0.1 K/mm3 (0.0-0.4); Eosinophils % 0.9 % (0.1-12.0); Hematocrit 41.4 % (37.0-47.0); Hemoglobin 13.4 g/dL (12.2-16.2); Lymphocytes # 3.1 K/mm3 (0.7-4.5); Lymphocytes % 23.6 % (10-50); Mean Corpuscular HGB Conc 32.3 g/dL (31.8-35.4); Mean Corpuscular Hemoglobin 28.3 pg (27.0-31.2); Mean Corpuscular Volume 87.4 fl (81-99); Mean Platelet Volume 9.9 fl (7.4-10.4); Monocytes # 0.6 K/mm3 (0.1-1.0); Monocytes % 4.1 % (1.7-9.3); Neutrophils # 9.4 K/mm3 (1.8-7.8); Neutrophils % 70.5 % (37.0-80.0); Platelet Count 392 K/mm3 (142-424); Red Blood Count 4.74 M/mm3 (4.20-5.40); Red Cell Distribution Width 14.7 % (11.5-17.5); White Blood Count 13.3 K/mm3 (4.8-10.8)
[2022-01-02 17:35] LABS: Alanine Aminotransferase 17 U/L (12-78); Albumin Level 3.8 g/dl (3.5-5.0); Albumin/Globulin Ratio 1.1 (1.1-1.8); Alkaline Phosphatase 125 U/L (38-126); Anion Gap 12.5 mEq/L (5-15); Aspartate Amino Transferase 25 U/L (14-36); Blood Urea Nitrogen 5 mg/dl (7-17); Calcium 9.3 mg/dl (8.4-10.2); Carbon Dioxide 24 mmol/L (22.0-30.0); Chloride 104 mmol/L (98-107); Chol/HDL Ratio 4.4 (1-3.5); Cholesterol 136 mg/dl (140-200); Estimated Glomerular Filt Rate 133 ml/min (>60); GFR (African American) 161 ML/MIN (>60); Globulin 3.6 g/dL (1.3-3.2); Glucose 97 mg/dl (74-100); HDL Cholesterol 31 mg/dl (40-60); Potassium 3.5 mmoL/L (3.5-5.1); Sodium 137 mmol/L (136-145); Total Protein,Serum 7.4 g/dl (6.3-8.2); Triglycerides 110 mg/dl (30-150); VLDL Cholesterol 22 mg/dL (0-40)
[2022-01-02 17:42] LABS: Bilirubin,Total 0.1 mg/dl (0.2-1.3)
[2022-01-02 17:46] LABS: Direct LDL Cholesterol 87.76 mg/dL (100-129)
[2022-01-02 17:52] LABS: 25-OH Vitamin D, Total 45.6 ng/mL (30-100)
[2022-01-02 18:06] LABS: Thyroid Stimulating Hormone 4.17 uIU/mL (0.465-4.68)
[2022-01-02 18:25] LABS: Vitamin B12 311 pg/mL (239-931)
[2022-01-04 10:46] LABS: LH 5.7 mIU/mL (.); Progesterone 9.6 ng/mL (.); Testosterone,Total 25 ng/dL (4-50)
[2022-01-08 21:08] LABS: Estrogen 268 pg/mL (.)
== END ==
PROVIDERS: PCP Physician Assistant; Visit Provider Physician Assistant
DX: E03.9 Hypothyroidism, unspecified (principal); R68.82 Decreased libido; E66.9 Obesity, unspecified; Z68.33 Body mass index [BMI] 33.0-33.9, adult
CPT/HCPCS: 80053; 80061; 82306; 82607; 82672; 83001; 83002; 84144; 84403; 84443; 85025

== ENCOUNTER → 2023-02-20 10:48 | Outpatient (CLI) | payer OTHER, SELFPAY ==
--- NOTE | 2023-02-20 10:51 | MM_ITS ---
PROCEDURE INFORMATION: Exam: MG Bilateral Screening 3D Mammography Exam date and time: 02/20/2023 10:54 AM Age: 48 years old Clinical indication: Screening examination; . Family history of breast carcinoma. TECHNIQUE: Imaging protocol: Bilateral Screening tomosynthesis and 2D mammography including computer-aided detection (CAD) when performed. COMPARISON: MG [facility] MM Dig screening mamm BI w/CAD 09/10/2017 2:23 PM FINDINGS: MAMMOGRAPHY: Breast composition: The breasts are heterogeneously dense, which may obscure small masses. Mass: No suspicious masses. Architectural distortion: No suspicious distortion. Calcifications: No suspicious calcifications. Asymmetric density: None. Skin thickening: None. Axillary adenopathy: None. IMPRESSION: 1. No mammographic evidence of malignancy. Annual screening is recommended unless otherwise clinically indicated. 2. Given the reported risk factors for this patient, a breast cancer risk assessment may prove useful for further evaluation. ASSESSMENT: BI-RADS Category 1: Negative
== END ==
PROVIDERS: PCP Physician Assistant; Visit Provider Nurse Practitioner Obstetrics & Gynecology
DX: Z12.31 Encounter for screening mammogram for malignant neoplasm of breast (principal)
CPT/HCPCS: 77063; 77067

== ENCOUNTER → 2023-03-17 16:52 | Outpatient (CLI) | payer OTHER, SELFPAY ==
[2023-03-16 19:21] LABS: Basophils # 0.1 K/mm3 (0-0.2); Basophils % 0.9 % (0.1-2.0); Eosinophils # 0.1 K/mm3 (0.0-0.4); Hematocrit 48.8 % (37.0-47.0); Hemoglobin 15.3 g/dL (12.2-16.2); Lymphocytes # 2.7 K/mm3 (0.7-4.5); Lymphocytes % 28.7 % (10-50); Mean Corpuscular HGB Conc 31.2 g/dL (31.8-35.4); Mean Corpuscular Hemoglobin 27.5 pg (27.0-31.2); Mean Corpuscular Volume 88.2 fl (81-99); Mean Platelet Volume 12.1 fl (7.4-10.4); Monocytes # 0.4 K/mm3 (0.1-1.0); Monocytes % 4.5 % (1.7-9.3); Neutrophils # 6.2 K/mm3 (1.8-7.8); Neutrophils % 64.8 % (37.0-80.0); Platelet Count 282 K/mm3 (142-424); Red Blood Count 5.54 M/mm3 (4.20-5.40); Red Cell Distribution Width 13.5 % (11.5-17.5); White Blood Count 9.5 K/mm3 (4.8-10.8)
[2023-03-16 19:23] LABS: Alanine Aminotransferase 17 U/L (12-78); Albumin/Globulin Ratio 1.1 (1.1-1.8); Alkaline Phosphatase 123 U/L (38-126); Anion Gap 13.9 mEq/L (5-15); Aspartate Amino Transferase 23 U/L (14-36); Bilirubin,Total 0.4 mg/dl (0.2-1.3); Blood Urea Nitrogen 6 mg/dl (7-17); Calcium 9.3 mg/dl (8.4-10.2); Carbon Dioxide 25 mmol/L (22.0-30.0); Chloride 104 mmol/L (98-107); Estimated Glomerular Filt Rate 132 ml/min (>60); GFR (African American) 159 ML/MIN (>60); Globulin 3.8 g/dL (1.3-3.2); Glucose 88 mg/dl (74-100); Potassium 3.9 mmoL/L (3.5-5.1); Sodium 139 mmol/L (136-145); Total Protein,Serum 7.8 g/dl (6.3-8.2)
[2023-03-16 19:54] LABS: Thyroid Stimulating Hormone 0.46 uIU/mL (0.465-4.68)
== END ==
PROVIDERS: PCP Internal Medicine; Visit Provider Internal Medicine
DX: R53.83 Other fatigue (principal)
CPT/HCPCS: 80053; 84443; 85025

== ENCOUNTER 2023-07-02 06:22 | Emergency (ER) | payer OTHER, SELFPAY ==
[2023-07-02] VITALS (9 sets, daily range): BP systolic 116–184; BP diastolic 69–107; PULSE 76–104; RESP 16–22; TEMP 36.6; O2SAT 95–99; BMI 31.2
--- NOTE | 2023-07-02 06:23 | ECG_ITS ---
APPROVED REPORT Exam: Resting ECG HR:95 bpm ECG Measurements Heart Rate 95 AXES GA 160 P 38 QRSd 86 QRS 19 QT 341 T -2 QTc 394 Conclusion SINUS RHYTHM LOW QRS VOLTAGE IN PRECORDIAL LEADS [QRS DEFLECTION < 1.0 mV IN CHEST LEADS] NONSPECIFIC T-WAVE ABNORMALITY BORDERLINE ECG UNCONFIRMED REPORT Electronically signed by : Gomez Liang MD 07/02/2023 20:07:58
--- NOTE | 2023-07-02 06:30 | XR_ITS ---
FINAL REPORT CLINICAL HISTORY: chest pain, hypertension, hx mi COMPARISON: 01/01/2021 FINDINGS: Two views of the chest were obtained. The heart size and pulmonary vascularity are within normal limits. The mediastinum is normal. No acute pulmonary abnormality is identified. There is no pneumothorax. The bony thorax is intact. IMPRESSION: No active cardiopulmonary disease. Reviewed, Interpreted and Dictated by Harley Valera III, MD Transcribed by Shahana Wang Authenticated and [facility]
--- NOTE | 2023-07-02 06:30 | PC.NURSE ---
in room talking with patient at this time.
--- NOTE | 2023-07-02 06:34 | HMH.EDGENADL ---
Discharge Plan Disposition Patient Disposition: Home, Self-Care Prescriptions Prescriptions: No Action Mirena 21 mcg/24 hours (8 yrs) 52 mg intrauterine device 52 device intrauterine ONCE Patient Comments: inserted 07/31/2015 losartan 25 mg tablet 25 mg PO BID Qty: 60 5RF famotidine 40 mg tablet 40 mg PO DAILY Qty: 30 2RF albuterol sulfate [Proventil HFA] 90 mcg/actuation HFA aerosol inhaler 2 puff inhalation Q6H PRN (Reason: shortness of breath or wheezing) 30 Days Qty: 6.7 0RF Vraylar 1.5 mg capsule 1.5 mg PO DAILY Qty: 30 2RF Anoro Ellipta 62.5-25 mcg/actuation blister with device See Rx Instructions .ROUTE .COMPLEX Qty: 60 5RF Dose Instruction: INHALE 1 DOSE EVERY 24 HOURS Rx Instructions: INHALE 1 DOSE EVERY 24 HOURS aspirin 81 mg tablet,chewable See Rx Instructions .ROUTE .COMPLEX Qty: 90 3RF Dose Instruction: CHEW 1 TABLET ONCE A DAY FOR BLOOD THINNER. Rx Instructions: CHEW 1 TABLET ONCE A DAY FOR BLOOD THINNER. atorvastatin 20 mg tablet 20 mg PO DAILY Qty: 90 3RF clonazepam 0.5 mg tablet 0.5 mg PO BID Qty: 60 0RF cholecalciferol (vitamin D3) [Vitamin D3] 25 mcg (1,000 unit) capsule See Rx Instructions .ROUTE .COMPLEX Qty: 90 0RF Dose Instruction: TAKE 1 CAPSULE 1 TIME EACH DAY Rx Instructions: TAKE 1 CAPSULE 1 TIME EACH DAY cyanocobalamin (vitamin B-12) [Vitamin B-12] 5,000 mcg tablet, sublingual See Rx Instructions .ROUTE .COMPLEX Qty: 90 0RF Dose Instruction: TAKE 1 TABLET 1 TIME EACH DAY Rx Instructions: TAKE 1 TABLET 1 TIME EACH DAY thyroid (pork) [[place] Thyroid] 60 mg tablet See Rx Instructions .ROUTE .COMPLEX Qty: 30 2RF Dose Instruction: TAKE 1 TABLET 1 TIME EACH DAY FOR OVERACTIVE THYROID Rx Instructions: TAKE 1 TABLET 1 TIME EACH DAY FOR OVERACTIVE THYROID Referrals Follow up/Referrals: Kylie Cooley PA [Primary Care Provider] - See instructions Clinical Impressions Clinical Impression: Chest pain Discharge ED Provider: Basil Brock General Adult HPI <Basil Brock MD - Last Filed: 07/02/23 07:12> General Chief complaint: Chest Pain Stated complaint: chest pain Time Seen by Provider: 07/02/23 06:23 Mode of Arrival: Ambulatory Source of Information: Patient Limitations: No Limitations Description of Symptoms (Recalled from ER Triage Doc. by RN): pt c/o lt arm achy constant and episodes of chest heaviness x 2 weeks. History of Present Illness HPI narrative: 48-year-old female with history of prior UT, hypertension, anxiety presents with chest pain rating to her left side with associated shortness of breath for the last week or so. She reports that she has been hypertensive recently and had her losartan increased from 25-50 but she remains hypertensive. She is worried about her anxiety. Reports recent cough and shortness of breath and nausea. Denies any fever. Related Data Home Medications Medication Instructions Recorded Confirmed levonorgestrel 21 mcg/24 hours (8 52 device intrauterine ONCE 02/10/23 07/02/23 yrs) 52 mg intrauterine device (Mirena) Previous Rx's Medication Instructions Recorded famotidine 40 mg tablet 40 mg PO DAILY #30 tabs 12/03/21 umeclidinium 62.5 mcg-vilanterol See Rx Instructions .Route 03/28/22 25 mcg/actuation powdr for .COMPLEX #60 blisters inhalation (Anoro Ellipta) albuterol sulfate 90 mcg/actuation 2 puff inhalation Q6H PRN 08/27/22 aerosol inhaler (Proventil HFA) shortness of breath or wheezing 30 days #6.7 grams aspirin 81 mg chewable tablet See Rx Instructions .Route 02/10/23 .COMPLEX #90 tabs atorvastatin 20 mg tablet 20 mg PO DAILY #90 tabs 04/14/23 clonazepam 0.5 mg tablet 0.5 mg PO BID Anxiety #60 tabs 06/09/23 cholecalciferol (vitamin D3) 25 See Rx Instructions .Route 06/25/23 mcg (1,000 unit) capsule (Vitamin .COMPLEX #90 caps D3) cyanocobalamin (vitamin B-12) See Rx Instructions .Route 06/25/23 5,000 mcg sublingual tablet .COMPLEX #90 tabs (Vitamin B-12) thyroid (pork) 60 mg tablet See Rx Instructions .Route 06/26/23 ([place] Thyroid) .COMPLEX #30 tabs cariprazine 1.5 mg capsule 1.5 mg PO DAILY #30 caps 06/29/23 (Vraylar) losartan 25 mg tablet 25 mg PO BID #60 tabs 06/29/23 Allergies Allergy/AdvReac Type Severity Reaction Status Date / Time vortioxetine Allergy Intermediate Palpitation Verified 06/29/23 13:09 [From Trintellix] s latex Allergy Unknown I-RASH Verified 06/29/23 13:09 hydroxyzine [From Vistaril] AdvReac dizzy Verified 06/29/23 13:09 metoprolol AdvReac vomiting Verified 06/29/23 13:09 PFSH <Basil Brock MD - Last Filed: 07/02/23 07:12> [facility] Disclaimer: The information contained in this section may have been updated after the patient was seen, as this information can be updated by other users. Medical History Abnormal EKG Depression Dyspnea Edema GERD (gastroesophageal reflux disease) Heart attack 2009, due to blood clot History of UT (myocardial infarction) Hypothyroidism Radha clearly has hypothyroidism. Her TSH was quite low however on her measure last week. We will decrease thyroid medication. We will decrease to 60 mg/day. She is to follow-up with a TSH in approximately 2 to 4 weeks. Palpitations Surgical History H/O right heart catheterization 2010 Family History Other Cancer Coronary artery disease Heart attack Hyperlipidemia Hypertension Thyroid disorder Social History Smoking Status: Current every day smoker tobacco type: cigarettes packs per day: 1 alcohol intake: never substance use type: denies use current occupational status: employed Travel in the last 8 weeks: Inside the [place] household members: spouse housing: house current occupational exposures/hazards: No <Basil Brock MD - Last Filed: 07/02/23 07:12> ROS Obtained: Yes All systems reviewed & no additional complaints except as documented Physical Exam <Basil Brock MD - Last Filed: 07/02/23 07:12> General General appearance: alert and anxious Head Head exam: atraumatic and normocephalic Eye Eye exam: Present normal appearance, PERRL and EOMI ENT ENT exam: Present normal oropharynx and normal external ear exam Neck Neck exam: Present normal inspection and full ROM Chest Chest inspection: Present normal inspection and symmetric chest wall rise; Absent tenderness Respiratory Respiratory exam: Present normal lung sounds bilaterally; Absent respiratory distress Cardiovascular Cardiovascular exam: Present normal rhythm and tachycardia Abdominal Exam Abdominal exam: Present soft; Absent distention, tenderness or guarding Extremities Exam Extremities exam: Present normal inspection; Absent edema or joint swelling Back Exam Back exam: Present normal inspection; Absent tenderness Neurological Exam Neurological exam: Present alert and oriented X3; Absent motor sensory deficit Psychiatric Psychiatric exam: Present normal affect and normal mood Skin Skin exam: Present warm, dry and normal color Lymphatic Lymphatic Findings: no adenopathy Medical Decision Making <Basil Brock MD - Last Filed: 07/02/23 07:12> Medical Records Medical records reviewed: Yes I reviewed the patient's medical records. Dereck Inquiry Pt receiving controlled substance: No Dereck was queried for this patient: No Vital Signs: 07/02/23 06:22 07/02/23 06:26 07/02/23 07:00 Temperature 97.9 F Temperature Source Oral Pulse Rate 104 H 86 Pulse Rate [Right] 104 H Respiratory Rate 16 20 Blood Pressure 153/96 H Blood Pressure [Right Arm] 184/107 H Blood Pressure Mean [Right Arm] 132 02 Sat by Pulse Oximetry 99 95 Oxygen Delivery Method Room Air 07/02/23 07:30 07/02/23 08:00 07/02/23 08:30 Temperature Temperature Source Pulse Rate 86 78 78 Pulse Rate [Right] Respiratory Rate 22 20 19 Blood Pressure 165/97 H 123/75 116/69 Blood Pressure [Right Arm] Blood Pressure Mean [Right Arm] 02 Sat by Pulse Oximetry 96 98 99 Oxygen Delivery Method 07/02/23 09:00 Temperature Temperature Source Pulse Rate 76 Pulse Rate [Right] Respiratory Rate 18 Blood Pressure 145/92 H Blood Pressure [Right Arm] Blood Pressure Mean [Right Arm] 02 Sat by Pulse Oximetry 98 Oxygen Delivery Method Room Air Lab Data Lab results reviewed: Yes I reviewed the patient's lab results. Lab Results 07/02/23 06:30: WBC 12.1 H, RBC 5.15, Hgb 15.0, Hct 45.2, MCV 87.9, MCH 29.2, MCHC 33.2, RDW 14.1, Plt Count 321, MPV 9.8, Neut % (Auto) 69.5, Lymph % (Auto) 24.1, [place] % (Auto) 4.0, Eos % (Auto) 1.3, Baso % (Auto) 1.1, Neut # (Auto) 8.4 H, Lymph # (Auto) 2.9, [place] # (Auto) 0.5, Eos # (Auto) 0.2, Baso # (Auto) 0.1, D-Dimer 0.44, Sodium 136, Potassium 3.3 L, Chloride 104, Carbon Dioxide 27, Anion Gap 8.3, BUN 5 L, Creatinine 0.60, Estimated Creat Clear 154, Estimated GFR 107, Est GFR ( Amer) 129, Glucose 117 H, Calcium 8.7, Total Bilirubin 0.4, AST 25, ALT 20, Alkaline Phosphatase 112, Troponin I < 0.01, Total Protein 8.2, Albumin 4.0, Globulin 4.2 H, Albumin/Globulin Ratio 1.0 L, Serum HCG, Qual Negative 07/02/23 06:46: SARS-CoV-2 (PCR) Not detected, Influenza A Untype (PCR) Not detected, Influenza Type B (PCR) Not detected 07/02/23 09:10: Troponin I < 0.01 07/02/23 06:30 07/02/23 06:30 Orders (Tests/Meds): ORDERS Category Date Time Status Chest XR 2 view (NOT portable) [XR chest 2V] Stat Exams 07/02/23 06:30 Completed Complete Blood Count Auto Diff Stat Lab 07/02/23 06:30 Completed Comprehensive Metabolic Panel Stat Lab 07/02/23 06:30 Completed D-Dimer Stat Lab 07/02/23 06:30 Completed HCG Qualitative, Serum Stat Lab 07/02/23 06:30 Completed Rapid PCR Covid and Flu A/B Stat Lab 07/02/23 06:46 Completed Troponin I Q3H Lab 07/02/23 09:10 Completed Troponin I Q3H Lab 07/02/23 12:30 Ordered Troponin I Stat Lab 07/02/23 06:30 Completed Medical Decision Narrative: 48-year-old female, history of hypertension, prior UT presents with blood pressure for the last week or so with associated chest pain and shortness of breath.. History was obtained via conversation with patient, chart review, family. On arrival, patient is afebrile, mildly hypertensive, satting appropriately on room air, mildly tachycardic., moving all extremities spontaneously. Full physical exam performed and significant for no significant physical exam abnormalities. Differential includes but is not limited to ACS, PE, asymptomatic hypertension, anxiety, hypertension, pneumonia. Workup initiated including CBC CMP D-dimer troponin EKG chest x-ray. On re-evaluation, patient [remains afebrile, HD stable.] Laboratory workup independently interpreted by me and significant for mild leukocytosis, mild hypokalemia, initial troponin negative. D-dimer negative. Imaging independently interpreted by me and significant for chest x-ray without focal opacity or abnormality.. See radiology read for full review of final results. EKG independently interpreted by me and significant for sinus rhythm, rate of 95, no concerning ST changes. Patient placed in ED obs at 6:45 AM for serial troponins and reassessment to avoid potentially unnecessary admission. Care handed off to oncoming physician. <Wilmar Riddle MD - Last Filed: 07/02/23 09:56> Vital Signs: 07/02/23 06:22 07/02/23 06:26 07/02/23 07:00 Temperature 97.9 F Temperature Source Oral Pulse Rate 104 H 86 Pulse Rate [Right] 104 H Respiratory Rate 16 20 Blood Pressure 153/96 H Blood Pressure [Right Arm] 184/107 H Blood Pressure Mean [Right Arm] 132 02 Sat by Pulse Oximetry 99 95 Oxygen Delivery Method Room Air 07/02/23 07:30 07/02/23 08:00 07/02/23 08:30 Temperature Temperature Source Pulse Rate 86 78 78 Pulse Rate [Right] Respiratory Rate 22 20 19 Blood Pressure 165/97 H 123/75 116/69 Blood Pressure [Right Arm] Blood Pressure Mean [Right Arm] 02 Sat by Pulse Oximetry 96 98 99 Oxygen Delivery Method 07/02/23 09:00 Temperature Temperature Source Pulse Rate 76 Pulse Rate [Right] Respiratory Rate 18 Blood Pressure 145/92 H Blood Pressure [Right Arm] Blood Pressure Mean [Right Arm] 02 Sat by Pulse Oximetry 98 Oxygen Delivery Method Room Air Lab Data Lab results reviewed: Yes I reviewed the patient's lab results. Lab Results 07/02/23 06:30: WBC 12.1 H, RBC 5.15, Hgb 15.0, Hct 45.2, MCV 87.9, MCH 29.2, MCHC 33.2, RDW 14.1, Plt Count 321, MPV 9.8, Neut % (Auto) 69.5, Lymph % (Auto) 24.1, [place] % (Auto) 4.0, Eos % (Auto) 1.3, Baso % (Auto) 1.1, Neut # (Auto) 8.4 H, Lymph # (Auto) 2.9, [place] # (Auto) 0.5, Eos # (Auto) 0.2, Baso # (Auto) 0.1, D-Dimer 0.44, Sodium 136, Potassium 3.3 L, Chloride 104, Carbon Dioxide 27, Anion Gap 8.3, BUN 5 L, Creatinine 0.60, Estimated Creat Clear 154, Estimated GFR 107, Est GFR ( Amer) 129, Glucose 117 H, Calcium 8.7, Total Bilirubin 0.4, AST 25, ALT 20, Alkaline Phosphatase 112, Troponin I < 0.01, Total Protein 8.2, Albumin 4.0, Globulin 4.2 H, Albumin/Globulin Ratio 1.0 L, Serum HCG, Qual Negative 07/02/23 06:46: SARS-CoV-2 (PCR) Not detected, Influenza A Untype (PCR) Not detected, Influenza Type B (PCR) Not detected 07/02/23 09:10: Troponin I < 0.01 Orders (Tests/Meds): ORDERS Category Date Time Status Chest XR 2 view (NOT portable) [XR chest 2V] Stat Exams 07/02/23 06:30 Completed Complete Blood Count Auto Diff Stat Lab 07/02/23 06:30 Completed Comprehensive Metabolic Panel Stat Lab 07/02/23 06:30 Completed D-Dimer Stat Lab 07/02/23 06:30 Completed HCG Qualitative, Serum Stat Lab 07/02/23 06:30 Completed Rapid PCR Covid and Flu A/B Stat Lab 07/02/23 06:46 Completed Troponin I Q3H Lab 07/02/23 09:10 Completed Troponin I Q3H Lab 07/02/23 12:30 Ordered Troponin I Stat Lab 07/02/23 06:30 Completed HEART Score History (anamnesis): Slightly suspicious ECG: Non-specific disturbance Age: 45-65 years Risk factors: 1-2 risk factors Troponin: </= normal limit HEART Score: 3 Medical Decision Narrative: 48-year-old female, history of hypertension, prior UT presents with blood pressure for the last week or so with associated chest pain and shortness of breath.. History was obtained via conversation with patient, chart review, family. On arrival, patient is afebrile, mildly hypertensive, satting appropriately on room air, mildly tachycardic., moving all extremities spontaneously. Full physical exam performed and significant for no significant physical exam abnormalities. Differential includes but is not limited to ACS, PE, asymptomatic hypertension, anxiety, hypertension, pneumonia. Workup initiated including CBC CMP D-dimer troponin EKG chest x-ray. On re-evaluation, patient [remains afebrile, HD stable.] Laboratory workup independently interpreted by me and significant for mild leukocytosis, mild hypokalemia, initial troponin negative. D-dimer negative. Imaging independently interpreted by me and significant for chest x-ray without focal opacity or abnormality.. See radiology read for full review of final results. EKG independently interpreted by me and significant for sinus rhythm, rate of 95, no concerning ST changes. Patient placed in ED obs at 6:45 AM for serial troponins and reassessment to avoid potentially unnecessary admission. Care handed off to oncoming physician. This Dr. Riddle I took over from Dr. Brock at 7 AM pending second troponin. D-dimer undetectably low not consistent with pulmonary embolism chest x-ray unremarkable EKG I reviewed with no evidence of ischemia serial troponins negative patient stable for outpatient discharge Procedures <Basil Brock MD - Last Filed: 07/02/23 07:12> Risk/Benefits of Procedure(s) Were Explained: Yes Critical Care <Basil Brock MD - Last Filed: 07/02/23 07:12> Critical Care Time Critical Care Time: No
[2023-07-02 06:45] LABS: Basophils # 0.1 K/mm3 (0-0.2); Basophils % 1.1 % (0.1-2.0); Eosinophils # 0.2 K/mm3 (0.0-0.4); Eosinophils % 1.3 % (0.1-12.0); Hematocrit 45.2 % (37.0-47.0); Lymphocytes # 2.9 K/mm3 (0.7-4.5); Lymphocytes % 24.1 % (10-50); Mean Corpuscular HGB Conc 33.2 g/dL (31.8-35.4); Mean Corpuscular Hemoglobin 29.2 pg (27.0-31.2); Mean Corpuscular Volume 87.9 fl (81-99); Mean Platelet Volume 9.8 fl (7.4-10.4); Monocytes # 0.5 K/mm3 (0.1-1.0); Neutrophils # 8.4 K/mm3 (1.8-7.8); Neutrophils % 69.5 % (37.0-80.0); Platelet Count 321 K/mm3 (142-424); Red Blood Count 5.15 M/mm3 (4.20-5.40); Red Cell Distribution Width 14.1 % (11.5-17.5); White Blood Count 12.1 K/mm3 (4.8-10.8)
[2023-07-02 06:49] LABS: Alanine Aminotransferase 20 U/L (12-78); Alkaline Phosphatase 112 U/L (38-126); Anion Gap 8.3 mEq/L (5-15); Aspartate Amino Transferase 25 U/L (14-36); Bilirubin,Total 0.4 mg/dl (0.2-1.3); Blood Urea Nitrogen 5 mg/dl (7-17); Calcium 8.7 mg/dl (8.4-10.2); Carbon Dioxide 27 mmol/L (22.0-30.0); Chloride 104 mmol/L (98-107); Creatinine Clearance Estimated 154 mL/min (50-200); Estimated Glomerular Filt Rate 107 ml/min (>60); GFR (African American) 129 ML/MIN (>60); Globulin 4.2 g/dL (1.3-3.2); Glucose 117 mg/dl (74-100); Potassium 3.3 mmoL/L (3.5-5.1); Sodium 136 mmol/L (136-145); Total Protein,Serum 8.2 g/dl (6.3-8.2)
[2023-07-02 06:52] LABS: Coronavirus 19, PCR Not Detected (NotDetected); Influenza A, PCR Not Detected (NotDetected); Influenza B, PCR Not Detected (NotDetected)
[2023-07-02 06:55] LABS: HCG Qualitative, Serum Negative (Negative)
[2023-07-02 06:56] LABS: D-Dimer 0.44 ug/mL (0.0-0.5)
[2023-07-02 07:02] LABS: Troponin I < 0.01 ng/ml (0.00-0.034)
--- NOTE | 2023-07-02 08:18 | PC.NURSE ---
ROUNDED ON PT, UPDATED ON POC. REPEAT TROP AT 0930. WARM BLANKET PROVIDED FOR PT AND SPOUSE
[2023-07-02 09:42] LABS: Troponin I < 0.01 ng/ml (0.00-0.034)
== END 2023-07-02 10:08 | disposition home or self-care (01) ==
PROVIDERS: Emergency Provider Emergency Medicine; PCP Physician Assistant
DX: R07.9 Chest pain, unspecified (principal); R06.02 Shortness of breath; M79.602 Pain in left arm; R05.9 Cough, unspecified; R11.0 Nausea; I10 Essential (primary) hypertension; I25.2 Old myocardial infarction; F41.9 Anxiety disorder, unspecified; E03.9 Hypothyroidism, unspecified; K21.9 Gastro-esophageal reflux disease without esophagitis; F17.210 Nicotine dependence, cigarettes, uncomplicated
CPT/HCPCS: 36415; 71046; 80053; 84484; 84703; 85025; 85378; 87636; 93005; 99285

== ENCOUNTER 2023-07-30 09:23 | Outpatient (CLI) | payer OTHER, SELFPAY | END 2023-07-30 23:59 | LOC: RT 09:23 | PROVIDERS: PCP Physician Assistant; Visit Provider Physician Assistant | DX: R00.2 Palpitations (principal); I10 Essential (primary) hypertension; E78.5 Hyperlipidemia, unspecified; K21.9 Gastro-esophageal reflux disease without esophagitis; F17.210 Nicotine dependence, cigarettes, uncomplicated | CPT/HCPCS: 93225 ==

== ENCOUNTER 2023-08-12 07:47 | Outpatient (CLI) | payer OTHER, SELFPAY ==
--- NOTE | 2023-08-12 07:48 | CA_ITS ---
FINAL REPORT TECHNIQUE: Grayscale, color Doppler and duplex Doppler ultrasound of the kidneys, aorta and renal arteries was performed. Multiple velocities were measured. CLINICAL HISTORY: HTN COMPARISON: None FINDINGS: aorta velocity: 71 cm/sec Right kidney: 10.1 cm. No evidence of hydronephrosis or mass. Right intrarenal RI: 0.67 Right renal artery velocity: 225 cm/sec. Right RAR (Renal artery-Aortic Ratio): 3.2 Left Kidney: 11.2 cm. No evidence of hydronephrosis or mass. Left intrarenal RI: 0.66 Left renal artery velocity: 170 cm/sec. Left RAR (Renal Artery-Aortic Ratio): 2.4 IMPRESSION: Greater than 60% stenosis of the right renal artery. Less than 50% stenosis of the left renal artery. CT angiogram or postcontrast MR angiogram would be more sensitive for evaluation of possible renal artery stenosis. Reviewed, Interpreted and Dictated by Alexander Sarkar MD Transcribed by Shahana Wang Authenticated and [facility]
--- NOTE | 2023-08-12 08:28 | US_ITS ---
FINAL REPORT CLINICAL HISTORY: I10 - Essential (primary) hypertension FINDINGS: RENAL ULTRASOUND Ultrasound images of the kidneys were obtained. Limited images of the liver parenchyma demonstrates normal echogenicity. The spleen is within normal limits. There is an echogenic shadowing focus in the gallbladder consistent with a gallstone. The right kidney measures 11 cm in length. It is normal echogenicity. There is no hydronephrosis. The left kidney measures 12 cm in length. It is normal echogenicity. There is no hydronephrosis. IMPRESSION: Normal renal ultrasound. Incidental finding of cholelithiasis. Reviewed, Interpreted and Dictated by Alexander Sarkar MD Transcribed by Maddie Hills Authenticated and [facility]
== END 2023-08-12 23:59 ==
LOC: RT 07:47
PROVIDERS: PCP Physician Assistant; Visit Provider Physician Assistant
DX: I10 Essential (primary) hypertension (principal); E78.5 Hyperlipidemia, unspecified; K21.9 Gastro-esophageal reflux disease without esophagitis; F17.210 Nicotine dependence, cigarettes, uncomplicated
CPT/HCPCS: 76770; 93976

== ENCOUNTER 2023-08-24 07:41 | Outpatient (CLI) | payer OTHER, SELFPAY ==
--- NOTE | 2023-08-24 07:42 | US_ITS ---
FINAL REPORT CLINICAL HISTORY: enlarged thyroid COMPARISON: None FINDINGS: THYROID ULTRASOUND: The right lobe of the thyroid measures 8.7 x 3.5 x 2.6 cm in size. The left lobe of the thyroid measures 6.8 x 3.2 x 2.5 cm in size. The isthmus is 1.2 cm in thickness. The thyroid gland is diffusely enlarged and heterogeneous without evidence of an identifiable focal mass. IMPRESSION: Enlarged thyroid gland, diffusely heterogeneous, likely thyroiditis versus multinodular goiter. Reviewed, Interpreted and Dictated by Harley Valera III, MD Transcribed by Shahana Wang Authenticated and [facility]
--- NOTE | 2023-08-24 07:42 | FL_ITS ---
FINAL REPORT CLINICAL HISTORY: .globus sensation, trouble swallowing foods and liquids fluoro time 2:00 DAP 721.10 FINDINGS: ESOPHAGRAM HISTORY: Dysphagia. PROCEDURE: The patient ingested barium. Effervescent crystals were also administered. Spot and overhead films were obtained. Number of images: 18 Fluoro time: 2.0 minutes DAP: 721.10 uGym2. FINDINGS: No esophageal stricture is identified. A 13 mm barium Passes through the esophagus and into the stomach without delay. 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 There is a small sliding-type hiatal hernia. No gastroesophageal reflux was demonstrated during the exam. IMPRESSION: Small sliding-type hiatal hernia. 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 Films reviewed , interpreted and dictated by Dr. Valera. Transcribed by Kervin Contreras PA-C. Reviewed, Interpreted and Dictated by Harley Valera III, MD Transcribed by FRANK Shah Authenticated and [facility]
== END 2023-08-24 23:59 ==
LOC: RAD 07:42
PROVIDERS: PCP Physician Assistant; Visit Provider Student in an Organized Health Care Education/Training Program
DX: R09.A2 Foreign body sensation, throat (principal); R13.10 Dysphagia, unspecified
CPT/HCPCS: 74220; 76536

== ENCOUNTER 2023-09-08 11:08 | Day surgery (SDC) | payer OTHER, SELFPAY ==
[2023-09-08] VITALS (16 sets, daily range): BP systolic 104–141; BP diastolic 70–94; PULSE 63–90; RESP 16–181; TEMP 36.8; O2SAT 90–98; BMI 198.6
--- NOTE | 2023-09-08 07:04 | IR_ITS ---
APPROVED REPORT Patient Location: Outpatient PROCEDURES Bilateral selective renal angiography INDICATION Abnormal renal duplex Informed consent was obtained prior to the procedure. COMPLICATIONS NONE Estimated Blood Loss: LESS THAN 10 ML TECHNIQUE 1% lidocaine used to anesthetize the right femoral groin. The right femoral artery was accessed via the Seldinger technique. A 4 Martiniquais sheath was placed in the right femoral artery. The JR4 catheter was used to selectively intubate each renal artery. At the end of the diagnostic angiogram the patient was transferred to the postop holding area in stable condition for sheath removal. ANGIOGRAPHIC RESULTS Right renal artery singular normal Left renal artery singular normal IMPRESSION Normal renal arteries bilaterally PLAN 1. Continue medical management for hypertension Electronically signed by : Barry Ramirez MD 09/08/2023 12:43:33
[2023-09-08 11:43] LABS: Basophils # 0.1 K/mm3 (0-0.2); Basophils % 1.2 % (0.1-2.0); Eosinophils # 0.1 K/mm3 (0.0-0.4); Eosinophils % 1.3 % (0.1-12.0); Hematocrit 45.6 % (37.0-47.0); Hemoglobin 14.5 g/dL (12.2-16.2); Lymphocytes # 2.7 K/mm3 (0.7-4.5); Lymphocytes % 25.8 % (10-50); Mean Corpuscular HGB Conc 31.8 g/dL (31.8-35.4); Mean Corpuscular Hemoglobin 29.2 pg (27.0-31.2); Mean Corpuscular Volume 91.7 fl (81-99); Monocytes # 0.3 K/mm3 (0.1-1.0); Monocytes % 2.9 % (1.7-9.3); Neutrophils # 7.2 K/mm3 (1.8-7.8); Neutrophils % 68.9 % (37.0-80.0); Platelet Count 278 K/mm3 (142-424); Red Blood Count 4.97 M/mm3 (4.20-5.40); Red Cell Distribution Width 14.1 % (11.5-17.5); White Blood Count 10.5 K/mm3 (4.8-10.8)
[2023-09-08 11:57] LABS: Anion Gap 8.6 mEq/L (5-15); Blood Urea Nitrogen 13 mg/dl (7-17); Calcium 9.4 mg/dl (8.4-10.2); Carbon Dioxide 31 mmol/L (22.0-30.0); Chloride 104 mmol/L (98-107); Creatinine Clearance Estimated -54 mL/min (50-200); Estimated Glomerular Filt Rate 89 ml/min (>60); GFR (African American) 108 ML/MIN (>60); Glucose 104 mg/dl (74-100); Potassium 3.6 mmoL/L (3.5-5.1); Sodium 140 mmol/L (136-145)
[2023-09-08] MEDS: 0.9 % SODIUM CHLORIDE 500 ML 25 ML IV (12:19)
[2023-09-08] MEDS: HEPARIN 1,000 UNITS/500ML NS (CATH LAB) 3000 UNIT IV (12:19)
[2023-09-08] MEDS: diphenhydrAMINE 50MG/ML VIAL 50 MG IV (12:19)
[2023-09-08] MEDS: LIDOCAINE 1% 10ML MDV 20 ML IJ (12:20)
[2023-09-08] MEDS: MIDAZOLAM HCL 1MG/1ML 5ML VIAL 1 MG IV (12:44)
[2023-09-08] MEDS: FENTANYL 100MCG/2ML VIAL 50 MCG IV (12:44)
[2023-09-08] MEDS: IOPAMIDOL-370 (76%);100ML BOTTLE 20 ML IV (14:44)
== END 2023-09-08 16:00 | disposition home or self-care (01) ==
LOC: CATHLAB 11:09
PROVIDERS: PCP Physician Assistant; Visit Provider Internal Medicine
DX: R39.9 Unspecified symptoms and signs involving the genitourinary system (principal); I10 Essential (primary) hypertension; E78.2 Mixed hyperlipidemia; Z79.899 Other long term (current) drug therapy; I25.2 Old myocardial infarction; R94.31 Abnormal electrocardiogram [ECG] [EKG]; E03.9 Hypothyroidism, unspecified; I70.1 Atherosclerosis of renal artery; F17.210 Nicotine dependence, cigarettes, uncomplicated
CPT/HCPCS: 36252; 36415; 80048; 85025; 99152; C1725; C1769; J1644; Q9967

== ENCOUNTER 2024-05-12 14:55 | Outpatient (CLI) | payer OTHER, SELFPAY ==
--- NOTE | 2024-05-12 14:58 | MM_ITS ---
PROCEDURE INFORMATION: Exam: MG Bilateral Screening 3D Mammography Exam date and time: 05/12/2024 2:46 PM Age: 49 years old Clinical indication: Screening examination. Maternal and paternal grandmothers had breast cancer. TECHNIQUE: Imaging protocol: Bilateral Screening tomosynthesis and 2D mammography including computer-aided detection (CAD) when performed. COMPARISON: 1. MG MM DIG SCREENING MAMM BI W/CAD 02/20/2023 10:54 AM 2. MG SCBI MM Dig screening mamm BI w/CAD 09/10/2017 2:23 PM FINDINGS: MAMMOGRAPHY: Breast composition: The breasts are heterogeneously dense, which may obscure small masses. Mass: No suspicious mass. Architectural distortion: None. Calcifications: No suspicious calcifications. Asymmetric density: None. Skin thickening: None. Axillary adenopathy: None. IMPRESSION: No mammographic evidence of malignancy. Annual screening is recommended unless otherwise clinically indicated. ASSESSMENT: BI-RADS Category 1: Negative.
== END 2024-05-12 23:59 | disposition home or self-care (01) ==
LOC: RAD 14:56
PROVIDERS: PCP Physician Assistant; Visit Provider Physician Assistant
DX: Z12.31 Encounter for screening mammogram for malignant neoplasm of breast (principal)
CPT/HCPCS: 77063; 77067

== ENCOUNTER 2024-09-27 08:05 | Outpatient (CLI) | payer OTHER, SELFPAY ==
--- NOTE | 2024-09-27 08:07 | CA_ITS ---
APPROVED REPORT EXAM: Comprehensive 2D, Doppler, and color-flow Echocardiogram Strip Stamp Straightener: Monse Espinoza RDCS Ht: 5 ft 5 in Wt: 202lbs BSA: 1.99 BP: 115/79 mmHg Indications: PRE OP COLONOSCOPY,AI, HTN,HLP EF 2020 45% M-Mode Dimensions RVDd 1.68 cm (0.9-2.6) LA Diam 2.91 cm (1.9-4.0) LVDd 5.01 cm (3.5-5.7) LVDs 3.61 cm (3.5-5.7) IVSd 0.93 cm (0.6-1.1) PWd 0.61 cm (0.6-1.1) EF (Teich) 53.90% FS 27.90% EDV (Teich) 118.80 mL ESV (Teich) 54.80 mL LV Diastology E Decel Time 193 (160-240 msec) E/A Ratio 0.6 Aortic Valve YULIET Index 1.72 cm2/m2 AoV Peak Gallito. 167.0 (50-130 cm/s) AO Peak GR. 11.20 mmHg AO Mean GR. 5.60 (<5 mmHg) AO VTI 28.2 (18-25 cm) YULIET (VTI) 3.49 (2.5-4.5 cm2) Mitral Valve MV E Max Gallito. 63.0 (40-130 cm/s) MV A Velocity 97.0 (40-130 cm/s) E/A Ratio 0.65 MV PHT 57.0 ms Left Ventricle The left ventricle is normal size. The left ventricular systolic function is normal. The left ventricular ejection fraction is within the normal range. There is normal left ventricular wall thickness. There is normal LV segmental wall motion. The left ventricular diastolic function is normal. LVEF is 55%. Right Ventricle The right ventricle is normal size. The right ventricular systolic function is normal. Atria The left atrium size is normal. The right atrium size is normal. There is no Doppler evidence of interatrial shunt. Aortic Valve The aortic valve opens well. Mild aortic regurgitation. There is no aortic valvular stenosis. Mitral Valve The mitral valve is normal in structure. No evidence of mitral valve stenosis. Trace mitral regurgitation. Tricuspid Valve Tricuspid valve is grossly normal in structure and function. Trace tricuspid regurgitation. There is insufficient TR jet to estimate RVSP. Pulmonic Valve The pulmonary valve is normal in structure. Trace pulmonic regurgitation. Great Vessels The aortic root is normal in size. IVC is normal in size and collapses >50% with inspiration. Pericardium There is no pericardial effusion. Other Information Study Quality: Fair Conclusion Normal biventricular systolic function. Mild AI. Electronically signed by : Marycarmen Escobar MD 09/27/2024 11:53:14
[2024-09-27 09:11] LABS: Basophils # 0.2 K/mm3 (0-0.2); Basophils % 1.3 % (0.1-2.0); Eosinophils # 0.1 K/mm3 (0.0-0.4); Eosinophils % 0.7 % (0.1-12.0); Hematocrit 43.6 % (37.0-47.0); Hemoglobin 14.3 g/dL (12.2-16.2); Lymphocytes # 3.8 K/mm3 (0.7-4.5); Lymphocytes % 28.1 % (10-50); Mean Corpuscular HGB Conc 32.8 g/dL (31.8-35.4); Mean Corpuscular Hemoglobin 27.7 pg (27.0-31.2); Mean Corpuscular Volume 84.5 fl (81-99); Mean Platelet Volume 11.4 fl (7.4-10.4); Monocytes # 0.7 K/mm3 (0.1-1.0); Monocytes % 5.2 % (1.7-9.3); Neutrophils # 8.7 K/mm3 (1.8-7.8); Neutrophils % 64.4 % (37.0-80.0); Platelet Count 324 K/mm3 (142-424); Red Blood Count 5.16 M/mm3 (4.20-5.40); Red Cell Distribution Width 14.7 % (11.5-17.5); White Blood Count 13.6 K/mm3 (4.8-10.8)
[2024-09-27 09:53] LABS: Alanine Aminotransferase 19 U/L (12-78); Alkaline Phosphatase 97 U/L (38-126); Anion Gap 12.8 mEq/L (5-15); Aspartate Amino Transferase 18 U/L (14-36); Bilirubin,Direct 0.2 mg/dl (0.0-0.4); Bilirubin,Indirect 0.2 mg/dL (0.0-0.9); Bilirubin,Total 0.4 mg/dl (0.2-1.3); Bilirubin,Unconjugated 0.2 mg/dL (0.0-1.1); Blood Urea Nitrogen 12 mg/dl (7-17); Calcium 9.7 mg/dl (8.4-10.2); Carbon Dioxide 29 mmol/L (22.0-30.0); Chloride 98 mmol/L (98-107); Chol/HDL Ratio 3.4 (1-3.5); Cholesterol 135 mg/dl (140-200); Estimated Glomerular Filt Rate 106 ml/min (>60); GFR (African American) 129 ML/MIN (>60); Glucose 72 mg/dl (74-100); HDL Cholesterol 40 mg/dl (40-60); Magnesium 1.9 mg/dl (1.6-2.3); Potassium 3.8 mmoL/L (3.5-5.1); Sodium 136 mmol/L (136-145); Total Protein,Serum 7.8 g/dl (6.3-8.2); Triglycerides 89 mg/dl (30-150); VLDL Cholesterol 18 mg/dL (0-40)
[2024-09-27 10:04] LABS: Direct LDL Cholesterol 70.01 mg/dL (100-129)
[2024-09-27 10:09] LABS: Free T4 (Free Thyroxine) 0.63 ng/dl (0.78-2.19)
[2024-09-27 10:24] LABS: Thyroid Stimulating Hormone 8.75 uIU/mL (0.465-4.68)
--- OUTSIDE RECORDS SUMMARY | 2024-09-29 20:48 | XMS_ITS | Continuity of Care Document ---
[facility] New Address [address] [place] [address] Care Team Providers Care Guest Service Supervisor Name Role Phone [facility]erring [facility] Primary Care Provid er Assessment Encounter Date Assessment Date Assessment LastModified by Organization Details LastModified Time 09/27/2024 09/27/2024 Images reviewed previously onxtkuBTU79/07/2025 : mild DDD, multilevel facet hypertrophy and ligamentum flavum hypertrophy, bulging disc at L4/L5 with mild central canal stenosis and moderate neural foraminal stenosis, L5/S1 with bilateral moderate to severe neural foraminal stenosis. L5 on S1 with grade 1 to grade 2 spondylolisthesis and endplate Modic changes Plan 09/27/2024 Today, I discussed with the patient about my current findings based on their history and/or physical exam. They have multiple pain generators, however I will treat their pain in a stepwise plan as outlined below. Platelet Inhibition due to ASA -Patient will need permission from prescribing physician to hold ASA prior to any neuraxial procedure due to increase risk of bleeding/hematoma per ARSA guidelines - prior FL with a stent. Will need to hold for 4 days prior to LESI 1. #Lumbar spinal stenosis with neurogenic claudication, Chronic stable #Lumbar DDD - s/p L5/s1 LESI: >95% pain relief. Able to have this repeated q3 months prn -Symptoms in the bilateral LE are improved post injection - previously reviewed the lumbar MRI images and interpreted on findings as above. 2. #Axial Neck Pain, Chronic stable #Cervical Spondylosis #Facetogenic pain #Vertebrogenic pain 3. # tobacco cessation - educated the patient on tobacco use increase his pain and causes increase in degenerative disc disease [email or web address] Not available 09/27/2024 16:20:52 Plan of Treatment Reminders Order Date Submit Date Provider Last Modified By Organization Details Last Modified Time Details Appointments OV EST 15 025 08:00AM TONIO MALIK, DO Not available Not available Not available Lab None record ed. Referral None record ed. Procedures None record ed. Surgeries None record ed. Imaging None record ed. Medication Orders None record ed. Patient TargetsNo targets recorded. Patient Instructions Encounter Date Encounter Id Patient Instructions Last Modified By Organization Details Last Modified Time 09/27/2024 [id number] I have discussed in great detail our potential treatment options which would include a rehabilitative approach to care. This program would include medication management, Physical Therapy, consideration for interventional procedures as appropriate, and lifestyle modification (diet, weight loss, exercise, smoking/tobacco cessation, holistic approach including meditation and yoga). The patient understands and agrees prior to proceeding with this plan. _ __ __ __ __ __ __ __ __ __ __ __ __ __ __ __ __ __ __ __ __ __ __ __ __ __ __ __ _ RECORDS REVIEW: As per clinic policy, we will have the patient sign a release to obtain previous imaging and clinical notes. _ __ __ __ __ __ __ __ __ __ __ __ __ __ __ __ __ __ __ __ __ __ __ __ __ __ __ __ _ PSYCH: Pain affecting Neuro-psych behavior was discussed. Discussed about pain psychological counseling as a part of the multimodal approach to pain treatment. _ __ __ __ __ __ __ __ __ __ __ __ __ __ __ __ __ __ __ __ __ __ __ __ __ __ __ __ _ REHABILITATION: Discussed with the patient the importance of diet, daily physical activity and PT. Discussed with the patient the need to be scheduled for physical therapy since physical therapy will prolong the benefits of the procedure and interventions. _ __ __ __ __ __ __ __ __ __ __ __ __ __ __ __ __ __ __ __ __ __ __ __ __ __ __ __ _ CLAUDIA: [id number] I have reviewed patient's CLAUDIA report prior to prescribing Schedule II, III, and IV medications that require review by law. [email or web address] Not available 09/27/2024 16:21:16 Reason for Referral None Reported. Problems Name Problem SNOMED Code Status Onset Date Resolution Date Notes Provider Name and Address Organization Details Recorded Time Stenosis of spinal canal due to intervertebral disc 868310143 Active 2024 TONIO MALIK [address], [address] [place] [address] 1, [place] [facility] - [place] & [place] 5 17:05:38 Spinal stenosis of lumbar region 22931825 Active 2024 TONIO MALIK [address], [address] [place] [address] 1, [place] [facility] [place] & [place] 5 17:05:48 Lumbar spondylosis 394634065 Active 2024 TONIO MALIK [address], [address] [place] [address] 1, [place] [facility] [place] & [place] 5 17:05:49 Vertebrogenic pain syndrome 995990811 Active 2024 TONIO MALIK [address], [address] [place] [address] 1, [place] [facility] [place] & [place] 5 17:05:50 Nicotine dependence 00892377 Active 2024 TONIO MALIK [address], [address] [place] [address] 1, [place] [facility] - [place] & [place] 5 17:06:00 Problem Notes None recorded. Procedures Surgical History Date Name Laterality Status Provider Name and Address Organization Details Recorded Time EMG/ Nerve Conduction Study completed Jono Beck M.D [address] [place] [address], [address], [place], [address], [place] [facility] [place] & [place] 08/02/2024 12:27:35 4 completed Maddie Torres [place] [facility] [place] & [place] 08/11/2024 14:41:35 4 Date of Last Pap Smear completed Maddie WOMACK [facility] & [place] 08/11/2024 14:41:35 Imaging Results None recorded. Procedure Notes None recorded. Medical Equipment None Reported. Allergies Allergen ID Allergen Name Allergen Category Reaction Reaction Severity Criticality Documentation Date Start Date Code Code System Note Provider Name and Address Organization Details Recorded Time 347249 latex environme nt,medica tion itching rash moderate moderate Not available 08/11/2024 80686 91 [facility] [place] 5 14:41:31 469366 vortioxet ine hydrobrom je medicatio n chest pain headache irregular heart rate severe severe severe Not available 08/11/2024 32392 34 [facility] & [place] 5 14:41:31 Medications Name Sig Start Date Stop Date Status Note LastModified by Organization Details LastModified Time [place] Thyroid 60 mg tablet TAKE 1 TABLET 1 TIME EACH DAY FOR THYROID active Not Available Not Available No t Available atorvastatin 20 mg tablet TAKE 1 TABLET 1 TIME EACH DAY active Not Available Not Available No t Available ammonium lactate 12 % lotion APPLY A THIN FILM TO THE AFFECTED AREA OF SKIN 2 TIMES EACH DAY FOR SKIN RASH active Not Available Not Available No t Available clonazepam 0.5 mg tablet TAKE 1 TABLET 2 TIMES EACH DAY FOR ANXIETY active Not Available Not Available No t Available olanzapine 5 mg tablet TAKE 1 TABLET 1 TIME EACH DAY AT BEDTIME active Not Available Not Available No t Available famotidine 20 mg tablet TAKE 1 TABLET 1 TIME EACH DAY active Not Available Not Available No t Available aspirin 81 mg chewable tablet CHEW 1 TABLET ONCE A DAY FOR BLOOD THINNER. active Not Available Not Available No t Available triamcinolon e acetonide 0.1 % lotion APPLY A THIN FILM TO THE AFFECTED AREA OF SKIN 2 TIMES EACH DAY active Not Available Not Available No t Available methylpredni solone 4 mg tablets in a dose pack TAKE ACCORDING TO PACKAGE INSTRUCTION S active Not Available Not Available No t Available escitalopram 20 mg tablet TAKE 1 TABLET 1 TIME EACH DAY active Not Available Not Available No t Available Vitamin D3 25 mcg (1,000 unit) capsule TAKE 1 CAPSULE 1 TIME EACH DAY active Not Available Not Available No t Available pregabalin 50 mg capsule TAKE 1 CAPSULE 3 TIMES EACH DAY active Not Available Not Available No t Available losartan 100 mg-hydrochlo rothiazide 12.5 mg tablet TAKE 1 TABLET 1 TIME EACH DAY active Not Available Not Available No t Available GaviLyte-G 236 gram-22.74 gram-6.74 gram-5.86 gram oral solution MIX AND TAKE ACCORDING TO PACKAGE AND PRESCRIBER INSTRUCTION S. active Not Available Not Available No t Available Vitamin B-12 5,[address]ling[address] TABLET UNDER THE TONGUE AND ALLOW TO DISSOLVE 1 TIME EACH DAY active Not Available Not Available No t Available Anoro Ellipta 62.5 mcg-25 mcg/actuatio n powder for inhalation INHALE 1 DOSE 1 TIME EACH DAY active Not Available Not Available No t Available Vitals Date Recorded Body height Body mass index (BMI) Body weight Body temperature Oxygen saturation Oxygen saturation in Arterial blood by Pulse oximetry Heart rate Systolic blood pressure Diastolic blood pressure Provider Name and Address Organization Details Last Updated DateTime 165.1 cm 33.3 kg/m2 10274.4 7 g 98.2 [degF] 99 % 99 % 80 /min 114 mm[Hg] 79 mm[Hg] Maddie Torres [facility] & [place] 14:03:02 Social History Question Answer Notes LastModified by Organizat ion Details LastModified Time Tobacco Smoking Status Current Every Day Smoker Maddie Torres [facility], [facility] & [place] 08/11/2024 14:41:44 Do You Have An Advance Directive? No [email or web address] Information not available 08/11/2024 What Is Your Level Of Alcohol Consumption? None [email or web address] Information not available 08/11/2024 Are You Blind Or Do You Have Difficulty Seeing? Yes [email or web address] Information not available 08/11/2024 What Was The Date Of Your Most Recent Tobacco Screening? 08/03/2024 [email or web address] Information not available 08/11/2024 Are You Passively Exposed To Smoke? No Information no t available 08/11/2024 Do You Or Have You Ever Used Smokeless Tobacco? Never Used Smokeless Tobacco [email or web address] Information not available 08/11/2024 How Much Tobacco Do You Smoke? 1 PPD [email or web address] Information not available 08/11/2024 Do You Feel Stressed (tense, Restless, Nervous, Or Anxious, Or Unable To Sleep At Night)? [id number] [email or web address] Information not available 08/11/2024 Do You Use Any Illicit Or Recreational Drugs? No [email or web address] Information not available 08/11/2024 How Many Years Have You Smoked Tobacco? 34 [email or web address] Information not available 08/11/2024 Sex: Unknown Functional Status Question Answer Note LastModified by Organizat ion Details LastModified Time What is your exercise level? Occasional [email or web address] Information not available 08/11/2024 Mental Status None recorded. Family History Relationship Description Onset Age of this Age Resolved Age Notes LastModified by Organization Details LastModified Time Paternal Grandmother Hearing loss pt. added direct ly (08/04) [email or web address] Not available 08/04/2024 11:06:41 Paternal Grandmother Hypertensive disorder pt. added direct ly (08/04) [email or web address] Not available 08/04/2024 11:07:11 Paternal Grandmother Rheumatoid arthritis pt. added direct ly (08/04) [email or web address] Not available 08/04/2024 11:07:38 Sister Myocardial infarction pt. added direct ly (08/04) [email or web address] Not available 08/04/2024 11:06:54 Sister Hypertensive disorder pt. added direct ly (08/04) [email or web address] Not available 08/04/2024 11:07:11 Sister Rheumatoid arthritis pt. added direct ly (08/04) [email or web address] Not available 08/04/2024 11:07:38 Sister Chronic obstructive pulmonary disease pt. added direct ly (08/04) [email or web address] Not available 08/04/2024 11:08:29 Sister Headache pt. added direct ly (08/04) [email or web address] Not available 08/04/2024 11:09:23 Paternal Grandfather Rheumatoid arthritis pt. added direct ly (08/04) [email or web address] Not available 08/04/2024 11:07:38 Paternal Grandfather Chronic obstructive pulmonary disease pt. added direct ly (08/04) [email or web address] Not available 08/04/2024 11:08:29 Paternal Aunt Disorder of thyroid gland pt. added direct ly (08/04) [email or web address] Not available 08/04/2024 11:08:01 Paternal Aunt Blood coagulation disorder pt. added direct ly (08/04) [email or web address] Not available 08/04/2024 11:08:15 Paternal Aunt Mental health problem pt. added direct ly (08/04) [email or web address] Not available 08/04/2024 11:09:09 Medical History Condition Response Obesity Y Eczema Y Back Problems Y Thyroid Problems Y Lung Disease Y GI Problems Y COPD Y Reflux/GERD Y Heart Attack ([place]) Y Psychiatric/Mental Health Condition Y Headaches Y Hypertension Y Neurological Problems Y Gynecological History Statement/Question Response Abnormal Pap N 05/07/2024 Sexually Active? Y Menses Monthly N Date of Last Pap Smear 08/11/2023 Current Control Method IUD Obstetrics History GPAL:G 0 P 0 0 0 0 Past Encounters Encounter ID Performer Location Encounter Start Date Encounter Closed Date Diagnosis/Indication Diagnosis SNOMED-CT Code Diagnosis ICD10 Code Diagnosis Note [id number] TONIO MALIK DO [facility]- [address] [place] [address] 09/27/2024 14:02:00 09/27/2024 14:20:14 Stenosis of spinal canal due to intervertebral disc 321754638 M99.53 Spinal barbara nosis of lumbar region 65664262 M48.062 Lumbar spondylosis 57387 0009 M47.896 Vertebroge nnamdi pain syndrome 321894343 M54.89 Nicotine dependence 5629 4008 F17.200 Health Concerns Section Related Observation LastModified by Organization Detai ls LastModified Time None Recorded Concern Status LastModified by Organization Details LastModified Time None Recorded Payers Encounter Date Sequence Insurance Name Policy Number Policy [place] Covered Member ID Vaac Member ID Guarantor Name 09/27/2024 1 [employer] [facility] (MEDICAID HMO) Radha Gonzalez [id number] Radha Gonzalez Notes Date Note Type Note Provider Name and Address Organization Details Recorded Time 09/27/2024 text/html Patient presente d with chronic low back pain with referred symptoms into bilateral lower extremities for several years. Patient denied any inciting events. Patient was unable to stand for long periods of time nor able to walk long distances because of the severity of the pain Referral: [facility]ie [facility]- severe anxiety, CAD s/p FL with stents >10yrs ago Interval History {{DATE 09/27/2024}}:Susie suarez presents today for f/u s/p {{C7/T1 NILAY C2/3-C4 mbbs C3-C5 C4-C6 Glenoh umeral joint injection Subacromial bursa injection Suprascapular nerve injection Intercostal nerve injection Thoracic mbbs Thoracic LENORE L2/3 LESI L3/4 LESI L4/5 LESI L5/S1 LESI* L1-L3 mbbs L2-L4 mbbs L3-L5 mbbs L4-S1 mbbs Dx SIJ Tx SIJ Caudal GTB Hip knee Femoral nerve saphenous nerve sciatic nerve popliteal fossa}}. Patient reported > {{50% 55% 60% 65% 70% 7 5% 80% 85% 90% 95%*}} in their pain relief after the injection. Patient has been able to perform more ADLs, activities, sleep better, and be in a better mood because they have less pain. She is very excited of the relief she is experiencing. She has become more active since the injection. Her sleep pattern has increased with less frequent periods of pain waking her up. Her pain today is 2/10. Patient currently denies saddle anesthesia, bowel/bladder incontinence, worsening/progressive weakness. Functional Goals of Treatment: Reduce the pain level by 50% or more and restore function/mobility/quali ty of life. {{DATE }}: Initial complaint: lower back pain localized to the low back/lumbar spine with referred symptoms into their LE? s.Onset: {{1 - 2 months 3 - 4 months 5 months >6 months 1 year 1 - 2 years 2 - 3 years >3 years >5 years* > 8 years >10 years}}Pain Location: {{upper back mid back lower back* buttocks}},{{righ t left b/l*}}{{hip(s) t high(s)* knee(s) LE's a nkle(s) foot feet}}Cour se: {{progressing over several days constant over several days progressing over several months to a year* constant over several months to a year progressing over several years constant over several years}}Pain Quality: sharp, dull, deep, tingling, numbness, weakness, throbbingAggravating Factors: prolong standing, prolong sitting, leaning backwards, lying flat, riding in cars for long periods, lifting heavy objectsAlleviating Factors: rest, leaning forwardAssociated Symptoms: burning and pain referring to {{right left b/l*}} {{UE LE shoulder trapez ius elbow finger(s) alesia mb hip(s) buttock(s) la teral thigh medial thigh anterior thigh* posterior LE knee(s) feet foot gr eat toe}}Current Medication:Opioids: {{None* Tramadol Hydroc odone 5 Hydrocodone 7.5 Hydrocodone 10 Oxycodone 5 Oxycodone 7.5 Oxycodone 10 dilaudid morphine 15 morphine 30 methadone suboxone f entanly patch Codeine}}NSAIDS: {{None ibuprofen* Melox icam naproxen diclofena c celecoxib Ketorolac m efenamic acid etoricoxib indomet hacin}}Muscle Relaxers:{{None* methoc arbamol carisoprodol ch lorzoxazone cyclobenzap rine orphenadrine metax alone dantrolene baclof en}}Others: {{lidocaine patch tylenol* Gabapent in Lyrica Cymbalta}}Pre vious Non-Interventional Treatment:- {{heat/ice, NSAIDS, TENS unit, lidocaine patch, chiroprator, PT, home exercise routine heat/ice, NSAIDS, TENS unit, lidocaine patch, chiroprator, home exercise routine#}}Interventions /Consults:-Neurosurgery : {{none* cervical thorac ic lumbar laminectomy, fusion multilevel fusion multiple spinal surgeries anterior cervical fusion discectomy Kypho plasty scoliosis surgery Lumbar interbody fusion}}-Orthopedics: {{none* right left SHARIF TKA joint replacement tib/fib Fx ankle surgery shoulder surgery reverse shoulder surgery amputation}}-In terventional pain: {{none* NILAY LESI shoul alexey hip knee piriformis SIJ TPIs SCS IT pump PNS cervical mbbs thoracic mbbs lumbar Mbbs cervica RFA thoracic RFA lumbar RFA}}-Podiatry: {{none* foot surgery}}Other Surgeries: cardiac stentsSmoking: {{yes* no quit recently quite >10 years ago}}Diabetes: {{no* DM 1 DM2}}A1C: {{<5.7 5.7 - 6 6.1 - 7 7.1 - 7.9 >8 unknown*}}Antico agulation: {{None* Warfarin Apixab an (eliquis) rivaroxaban(X arelto) fondaparinux}}A ntiplatelets: {{None ASA* Clopidogrel (plavix) ticagrelor (Brilinta) cilostazol d ipyridamole prasugrel (Effient)}}Work Status: {{employed* unemployed retired disability}} TONIO MALIK, DO [address] [place] [address], [id number], [facility] 09/27/2024 16:21:28 OBGyn Episode No OBEpisode recorded.
--- OUTSIDE RECORDS SUMMARY | 2024-09-29 20:48 | XMS_ITS | Data Portability ---
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 L5 on S1 with grade 1 to grade 2 spondylolisthesis and endplate Modic changes Plan 08/11/2024 Today, I discussed with the patient about [...] of bleeding/hematoma per ARSA guidelines - prior [place] with a stent. Will need to hold for 4 days prior to LESI 1. #Lumbar spinal stenosis with neurogenic claudication, Chronic worsening #Lumbar DDD -Symptoms in the bilateral LE -+ shopping cart sign -patient has completed PT and other conservative therapies that were listed in the HPI. They remain symptomatic and have failed conservative therapies. - I reviewed the lumbar MRI images and interpreted on findings as above. - They are an appropriate candidate for this procedure. - We discussed with risks and benefits of this procedure. They would like to proceed with this therapy -Schedule LESI at L5/S1 using fluoroscopic guidance. Patient will need to hold aspirin for 4-7 days if the plasma table operator allows her - f/u in 2-4 weeks 2. #Axial Neck Pain, Chronic worsening #Cervical Spondylosis #Facetogenic pain #Vertebrogenic pain 3. # tobacco cessation - educated the patient on tobacco use increase his pain and causes increase in degenerative disc disease [email or web address] Not available 08/11/2024 17:06:24 09/27/2024 09/27/2024 Images reviewed previously rrjajkZNG27/07/2025 : mild DDD, multilevel facet hypertrophy and [...] of bleeding/hematoma per ARSA guidelines - prior [place] with a stent. Will need to hold [...] and causes increase in degenerative disc disease [email or web address] Not available 09/27/2024 16:20:52 Plan of Treatment Reminders Order Date Submit Date Provider Last Modified By Organization Details Last Modified Time Details Appointments OV EST 15 2024 08:00A Kailey MALIK, DO Not available Not available Not available Lab None recorded. Referral None recorded. Procedures epidural steroid injection , lumbar (PROC) - 28397 L5/s1 epidural 2024 025 [email or web address] Troy Malik DO, [address], [place] [address], [place], [address], 09/05/2024 13:47:17 Surgeries None recorded. Imaging None recorded. Medication Orders None recorded. Patient TargetsNo targets recorded. Patient Instructions Encounter Date Encounter Id Patient Instructions Last Modified By Organization Details Last Modified Time 08/11/2024 [id number] I have discussed in great detail our [...] __ __ __ __ __ _ CLAUDIA: [id number] I have reviewed patient's CLAUDIA report prior to prescribing Schedule II, III, and IV medications that require review by law. [email or web address] Not available 08/11/2024 17:04:46 09/27/2024 [id number] I have discussed in great detail our [...] __ __ __ __ __ _ CLAUDIA: [id number] I have reviewed patient's CLAUDIA report prior to prescribing Schedule II, III, and IV medications that require review by law. [email or web address] Not available 09/27/2024 16:21:16 Reason for Referral None Reported. Problems Name Problem SNOMED Code Status Onset Date Resolution Date Notes Provider Name and Address Organization Details Recorded Time Stenosis of spinal canal due to intervertebral disc 628755675 Active 2024 [address]MA[address] MALIK [address], [place], [address], [place] - [facility] [place] & [place] 5 17:05:38 Spinal stenosis of lumbar region 40094351 Active 2024 TROY MALIK [address], [address], [place] [facility] & [place] 5 17:05:48 Lumbar spondylosis 665376198 Active 2024 TROY MALIK [address], [place], [address], [place] [facility] & [place] 5 17:05:49 Vertebrogenic pain syndrome 566363785 Active 2024 TROY MALIK [address], [address], [place] - [facility] - [facility] & [place] 5 17:05:50 Nicotine dependence 21912912 Active 2024 TROY MALIK [address], [address], [place] - [facility] & [place] 5 17:06:00 Problem Notes None recorded. Procedures Surgical History Date Name Laterality Status Provider Name and Address Organization Details Recorded Time EMG/ Nerve Conduction Study completed Jono Beck M.D [address] [place] [address], [address], [place], [address], [place] - [facility] [place] & [place] 08/02/2024 12:27:35 4 completed Maddie OWMACK - [facility] - [facility] & [place] 08/11/2024 14:41:35 4 Date of Last Pap Smear completed Maddie WOMACK - [facility] - [facility] & [place] 08/11/2024 14:41:35 Imaging Results None recorded. Procedure Notes None recorded. Medical Equipment None Reported. Allergies Allergen ID Allergen Name Allergen Category Reaction Reaction Severity Criticality Documentation Date Start Date Code Code System Note Provider Name and Address Organization Details Recorded Time 603720 latex environme nt,medica tion itching rash moderate moderate Not available 08/11/2024 36702 91 RxNorm Maddie alexandre, [place] - [facility] & [place] 5 14:41:31 452725 vortioxet ine hydrobrom je medicatio n chest pain headache irregular heart rate severe severe severe Not available 08/11/2024 37573 34 RxNorm SHANTA Madrigal - [facility] & [place] 14:41:31 Medications Name Sig Start Date Stop Date Status Note LastModified by Organization Details LastModified Time [place] Thyroid 60 mg tablet TAKE 1 TABLET [...] Available Vitals Date Recorded Body height Body weight Body temperature Oxygen saturation Oxygen saturation in Arterial blood by Pulse oximetry Heart rate Provider Name and Address Organization Details Last Updated DateTime 165.1 cm 08231.2 9 g 98 [degF] 98 % 98 % 89 /min Kindra Venkatesh [facility] & [place] 14:45:10 Date Recorded Body height Body mass index (BMI) Body weight Body temperature Oxygen saturation Oxygen saturation in Arterial blood by Pulse oximetry Heart rate Systolic blood pressure Diastolic blood pressure Provider Name and Address Organization Details Last Updated DateTime 165.1 cm 33.3 kg/m2 22421.4 7 g 98.4 [degF] 100 % 100 % 89 /min 121 mm[Hg] 84 mm[Hg] Maddie Torres [facility] & [place] 14:41:09 Date Recorded Body height Body mass index (BMI) Body weight Body temperature Oxygen saturation Oxygen saturation in Arterial blood by Pulse oximetry Heart rate Systolic blood pressure Diastolic blood pressure Provider Name and Address Organization Details Last Updated DateTime 5 165.1 cm 33.3 kg/m2 36116.4 7 g 98.2 [degF] 99 % 99 % 80 /min 114 mm[Hg] 79 mm[Hg] Maddie Torres [facility] & [place] 5 14:03:02 Social History Question Answer Notes LastModified by Organizat ion Details LastModified Time Tobacco Smoking Status Current Every Day Smoker [email or web address] & [place] 08/11/2024 14:41:44 Do You Have An Advance Directive? No [email or web address] Information not available 08/11/2024 What Is Your Level Of Alcohol Consumption? None [email or web address] Information not available 08/11/2024 Are You Blind Or Do You Have Difficulty Seeing? Yes Information not available 08/11/2024 What Was The Date Of Your Most Recent Tobacco Screening? 08/03/2024 Information not available 08/11/2024 Are You Passively Exposed To Smoke? No Information no t available 08/11/2024 Do You Or Have You Ever Used Smokeless Tobacco? Never Used Smokeless Tobacco Information not available 08/11/2024 How Much Tobacco Do You Smoke? 1 PPD [email or web address] Information not available 08/11/2024 Do You Feel Stressed (tense, Restless, Nervous, Or Anxious, Or Unable To Sleep At Night)? [id number] [email or web address] Information not available 08/11/2024 Do You Use Any Illicit Or Recreational Drugs? No [email or web address] Information not available 08/11/2024 How Many Years Have You Smoked Tobacco? 34 [email or web address] Information not available 08/11/2024 Sex: Unknown Functional Status Question Answer Note LastModified by Organizat ion Details LastModified Time What is your exercise level? Occasional [email or web address] Information not available 08/11/2024 Mental Status None [...] Y Back Problems Y Thyroid Problems Y COPD Y GI Problems Y Lung Disease Y Reflux/GERD Y Psychiatric/Mental Health Condition Y Heart Attack ([place]) Y Headaches Y Hypertension Y Neurological Problems Y Gynecological History Statement/Question Response Abnormal Pap N 05/07/2024 Sexually Active? Y Menses Monthly N Date of Last Pap Smear 08/11/2023 Current Control Method IUD Obstetrics History GPAL:G 0 P 0 0 0 0 Past Encounters Encounter ID Performer Location Encounter Start Date Encounter Closed Date Diagnosis/Indication Diagnosis SNOMED-CT Code Diagnosis ICD10 Code Diagnosis Note [id number] Jono Beck M.D [facility] [place] [address] [place] [address] 07/26/2024 14:29:27 07/26/2024 15:40:56 Cervical radiculopathy 62039150 M54.12 Paresthesia 19793822 R20 .2 Abnormal sensation 53368 1999 R20.9 [id number] TROY MALIK DO [facility] [address] [place] [address] 08/11/2024 14:10:32 08/11/2024 15:17:30 Stenosis of spinal canal due to intervertebral disc 523687739 M99.53 Spinal barbara nosis of lumbar region 90500903 M48.062 Lumbar spondylosis 77234 0009 M47.896 Vertebroge nnamdi pain syndrome 796880393 M54.89 Nicotine dependence 5629 4008 F17.062 [id number] TROY MALIK DO [facility]- [address] [place] [address] 09/27/2024 14:02:00 09/27/2024 14:20:14 Stenosis of spinal canal due to intervertebral disc 157561751 M99.53 Spinal barbara nosis of lumbar region 13393215 M48.062 Lumbar spondylosis 20729 0009 M47.896 Vertebroge nnamdi pain syndrome 996675566 M54.89 Nicotine dependence 5629 4008 F17.200 Health Concerns Section Related Observation LastModified by Organization Detai ls LastModified Time None Recorded Concern Status LastModified by Organization Details LastModified Time None Recorded Advance Directives Directive N: Payers Encounter Date Sequence Insurance Name Policy Number Policy Vaca Covered Member ID Vaca Member ID Guarantor Name 07/26/2024 1 [facility] (MEDICAID HMO) Radha Carlos [id number] Radha Carlos 08/11/2024 1 [facility] Radha Carlos [id number] Radha Carlos 09/27/2024 1 [facility] Radha Carlos [id number] Radha Carlos Notes Date Note Type Note Provider Name and Address Organization Details Recorded Time 08/11/2024 text/html Patient presente d with chronic low back pain with referred symptoms into bilateral lower extremities for several years. Patient denied any inciting events. Patient is unable to stand for long periods of time nor she able to walk long distances because of the severity of the pain Referral: Kylie MARIE-[facility]- severe anxiety, CAD s/p [place] with stents >10yrs ago {{DATE 08/11/2024}}: Initial complaint: lower back pain localized to [...] Quality: sharp, dull, deep, tingling, numbness, weakness, throbbingPain Intensity: {{1 2 3 4 5 6 7 8 9* 10 }} / 10Aggravating Factors: prolong standing, prolong sitting, leaning backwards, lying flat, riding in cars for long periods, lifting heavy objectsAlleviating Factors: rest, leaning forwardAssociated Symptoms: burning and pain referring to {{right left b/l*}} {{UE LE shoulder trapez ius elbow finger(s) alesia mb hip(s) buttock(s) la teral thigh medial thigh anterior thigh* posterior LE knee(s) feet foot gr eat toe}}-Patient currently denies saddle anesthesia, bowel/bladder incontinence, worsening/progressive weakness.-Functional Goals of Treatment: Reduce the pain level by 50% or more and restore function/mobility/quali ty of life. Current Medication:Opioids: {{None* Tramadol Hydroc odone 5 Hydrocodone [...] TENS unit, lidocaine patch, chiroprator, home exercise routine#}} Interventions/Consults: -Neurosurgery: {{none* cervical thorac ic lumbar laminectomy, fusion [...] prasugrel (Effient)}}Work Status: {{employed* unemployed retired disability}} TROY MALIK, [address], [phone] [place] [address] & [place] 08/11/2024 17:06:47 09/27/2024 text/html Patient presente d with chronic low back pain with referred symptoms into bilateral lower extremities for several years. Patient denied any inciting events. Patient was unable to stand for long periods of time nor able to walk long distances because of the severity of the pain Referral: Kylie MARIE-[facility]- severe anxiety, CAD s/p VT with stents >10yrs ago Interval History {{DATE [...] prasugrel (Effient)}}Work Status: {{employed* unemployed retired disability}} TROY MALIK, DO [address] [place] [address], [phone], [facility] - NT [facility] 09/27/2024 16:21:28 OBGyn Episode No OBEpisode recorded.
--- OUTSIDE RECORDS SUMMARY | 2024-09-29 20:48 | XMS_ITS | Continuity of Care Document ---
Author Organization [facility] New Address [address] [place] [address] Care Team Providers Care Rn Clinical Appeals Name Role Phone [facility] Referring Provider [facility] Primary Care Provid er Assessment Encounter Date Assessment Date Assessment LastModified by Organization Details LastModified Time 08/11/2024 08/11/2024 Images reviewed Xrays: Xrays: [id number]/07/2025 : mild DDD, multilevel facet hypertrophy and [...] of bleeding/hematoma per ARSA guidelines - prior [place] with a stent. Will need to hold [...] hold aspirin for 4-7 days if the armament mechanic allows her - f/u in 2-4 weeks 2. #Axial Neck Pain, Chronic worsening #Cervical Spondylosis #Facetogenic pain #Vertebrogenic pain 3. # tobacco cessation - educated the patient on tobacco use increase his pain and causes increase in degenerative disc disease [email or web address] Not available 08/11/2024 17:06:24 Plan of Treatment Reminders Order Date Submit Date Provider Last Modified By Organization Details Last Modified Time Details Appointments OV EST 15 2024 08:00A M TROY MALIK, DO Not available Not available Not available Lab None recorded. Referral None recorded. Procedures epidural steroid injection , lumbar (PROC) - 90602 L5/s1 epidural 2024 025 [email or web address] Troy Malik DO, [address] [facility], [place] [address], [place], [address], 09/05/2024 13:47:17 Surgeries None recorded. Imaging None recorded. Medication Orders None recorded. Patient TargetsNo targets recorded. Patient Instructions Encounter Date Encounter Id Patient Instructions Last Modified By Organization Details Last Modified Time 08/11/2024 [id number] I have discussed in great detail our [...] __ __ __ __ __ _ CLAUDIA: [id number] I have reviewed patient's CLAUDIA report prior to prescribing Schedule II, III, and IV medications that require review by law. [email or web address] Not available 08/11/2024 17:04:46 Reason for Referral None Reported. Problems Name Problem SNOMED Code Status Onset Date Resolution Date Notes Provider Name and Address Organization Details Recorded Time Stenosis of spinal canal due to intervertebral disc 076117483 Active 2024 TROY MALIK [address], [address], [place] - [facility] - [place] & [place] 5 17:05:38 Spinal stenosis of lumbar region 83920878 Active 2024 TROY MALIK [address], [address], [place] - [facility] [place] & [place] 5 17:05:48 Lumbar spondylosis 917607143 Active 2024 TROY MALIK [address], [address], [place] [facility] [place] & [place] 5 17:05:49 Vertebrogenic pain syndrome 720496904 Active 2024 TROY MALIK [address], [address], [place] - [facility] - [place] & [place] 5 17:05:50 Nicotine dependence 86009029 Active 2024 TROY MALIK [address], [address], [place] [facility] & [place] 5 17:06:00 Problem Notes None recorded. Procedures Surgical History Date Name Laterality Status Provider Name and Address Organization Details Recorded Time 5 EMG/ Nerve Conduction Study completed Jono Beck M.D [address] [place] [address], [address], [place], [address], [facility] & [place] 08/02/2024 12:27:35 4 completed Maddie WOMACK [facility] & [place] 08/11/2024 14:41:35 4 Date of Last Pap Smear completed Maddie WOMACK [facility] & [place] 08/11/2024 14:41:35 Imaging Results None recorded. Procedure Notes None recorded. Medical Equipment None Reported. Allergies Allergen ID Allergen Name Allergen Category Reaction Reaction Severity Criticality Documentation Date Start Date Code Code System Note Provider Name and Address Organization Details Recorded Time 267763 latex environme nt,medica tion itching rash moderate moderate Not available 08/11/2024 90224 91 RxNorm SHANTA Madrigal [facility] & [place] 5 14:41:31 506924 vortioxet ine hydrobrom je medicatio n chest pain headache irregular heart rate severe severe severe Not available 08/11/2024 72347 34 RxNorm SHANTA Madrigal [facility] & [place] 5 14:41:31 Medications Name Sig Start Date Stop Date Status Note LastModified by Organization Details LastModified Time [place] Thyroid 60 mg tablet TAKE 1 TABLET [...] Updated DateTime 5 165.1 cm 33.3 kg/m2 73357.4 7 g 98.4 [degF] 100 % 100 % 89 /min 121 mm[Hg] 84 mm[Hg] Maddie COOLEY [facility] & [place] 5 14:41:09 Social History Question Answer Notes LastModified by Organizat ion Details LastModified Time Tobacco Smoking Status Current Every Day Smoker Maddie alexandre, [place] COOLEY [facility] & [place] 08/11/2024 14:41:44 Do You Have An Advance Directive? No [email or web address] Information not available 08/11/2024 What Is Your Level Of Alcohol Consumption? None [email or web address] Information not available 08/11/2024 Are You Blind Or Do You Have Difficulty Seeing? Yes [email or web address] Information not available 08/11/2024 What Was The Date Of Your Most Recent Tobacco Screening? 08/03/2024 [email or web address] Information not available 08/11/2024 Are You Passively Exposed To Smoke? No [email or web address] Information no t available 08/11/2024 Do You Or Have You Ever Used Smokeless Tobacco? Never Used Smokeless Tobacco [email or web address] Information not available 08/11/2024 How Much Tobacco Do You Smoke? 1 PPD Information not available 08/11/2024 Do You Feel Stressed (tense, Restless, Nervous, Or Anxious, Or Unable To Sleep At Night)? AX53103-4 [email or web address] Information not available 08/11/2024 Do You Use Any Illicit Or Recreational Drugs? No Information not available 08/11/2024 How Many Years Have You Smoked Tobacco? 34 Information not available 08/11/2024 Sex: Unknown Functional Status Question Answer Note LastModified by Organizat ion Details LastModified Time What is your exercise level? Occasional [email or web address] Information not available 08/11/2024 Mental Status None [...] available 08/04/2024 11:09:09 Medical History Condition Response Thyroid Problems Y GI Problems Y Lung Disease Y COPD Y Heart Attack ([place]) Y Neurological Problems Y Obesity Y Eczema Y Back Problems Y Reflux/GERD Y Psychiatric/Mental Health Condition Y Headaches Y Hypertension Y Gynecological History Statement/Question Response Abnormal Pap N 05/07/2024 Sexually Active? Y Menses Monthly N Date of Last Pap Smear 08/11/2023 Current Control Method IUD Obstetrics History GPAL:G 0 P 0 0 0 0 Past Encounters Encounter ID Performer Location Encounter Start Date Encounter Closed Date Diagnosis/Indication Diagnosis SNOMED-CT Code Diagnosis ICD10 Code Diagnosis Note [id number] Jono Beck M.D [facility] [address],[facility] [address] [place] [address] 07/26/2024 14:29:27 07/26/2024 15:40:56 Cervical radiculopathy 04363400 M54.12 Paresthesia 95630905 R20 .2 Abnormal sensation 60273 1999 R20.9 [id number] TROY MALIK DO [facility]- [address] [place] [address] 08/11/2024 14:10:32 08/11/2024 15:17:30 Stenosis of spinal canal due to intervertebral disc 888916131 M99.53 Spinal barbara nosis of lumbar region 62303973 M48.062 Lumbar spondylosis 56342 0009 M47.896 Vertebroge nnamdi pain syndrome 229353460 M54.89 Nicotine dependence 5629 4008 F17.200 Health Concerns Section Related Observation LastModified by Organization Detai ls LastModified Time None Recorded Concern Status LastModified by Organization Details LastModified Time None Recorded Payers Encounter Date Sequence Insurance Name Policy Number Policy Vaca Covered Member ID Vaca Member ID Guarantor Name 08/11/[address] [facility] (MEDICAID HMO) Radha Carlos [id number] Radha Carlos Notes Date Note Type Note [...] the severity of the pain Referral: Kylie MARIE-[facility]- severe anxiety, CAD s/p [place] with stents >10yrs ago {{DATE 08/11/2024}}: Initial [...] {{employed* unemployed retired disability}} TROY MALIK, DO [address] [place] [address], [phone], [facility] - NT [facility] 08/11/2024 17:06:47 OBGyn Episode No OBEpisode recorded.
== END 2024-09-27 23:59 | disposition home or self-care (01) ==
LOC: RT 08:06
PROVIDERS: PCP Physician Assistant; Visit Provider Physician Assistant
DX: I35.1 Nonrheumatic aortic (valve) insufficiency (principal); I11.0 Hypertensive heart disease with heart failure; I50.20 Unspecified systolic (congestive) heart failure; E03.9 Hypothyroidism, unspecified; E78.2 Mixed hyperlipidemia
CPT/HCPCS: 36415; 80048; 80061; 80076; 83735; 84439; 84443; 85025; 93306

== ENCOUNTER 2024-09-28 10:12 | Day surgery (SDC) | payer OTHER, SELFPAY ==
[2024-09-23 10:25] VITALS: BMI 33.6
[2024-09-28 10:31] VITALS: BP 129/70; PULSE 85; RESP 16; TEMP 36.5; O2SAT 96
[2024-09-28] MEDS: LACTATED RINGERS 1000ML 1,000 ML 50 ML IV (10:47)
[2024-09-28 11:04] LABS: Urine Pregnancy, HCG Qual. Negative (Negative)
--- NOTE | 2024-09-28 11:06 | P.PNANES_ITS ---
[facility] Disclaimer: The information contained in this section may have been updated after the patient was seen, as this information can be updated by other users. Medical History HFrEF (heart failure with reduced ejection fraction) Renal artery stenosis Globus sensation Dysphagia Heart attack Abnormal EKG Edema Palpitations Dyspnea Depression Hypothyroidism GERD (gastroesophageal reflux disease) History of [place] (myocardial infarction) Surgical History H/O right heart catheterization Family History Other Cancer Coronary artery disease Heart attack Hyperlipidemia Hypertension Thyroid disorder Social History Smoking Status: Current every day smoker tobacco type: cigarettes packs per day: 1 alcohol intake: never substance use type: denies use current occupational status: employed Travel in the last 8 weeks: None household members: spouse housing: house current occupational exposures/hazards: No caffeine: Yes Have you lived/traveled outside [place] in past 30 days?: No Contact w/someone who lives/traveled outside [place] past 30 days?: No Exposure to someone with infectious disease in past 14 days?: No Do you have a fever (greater than 100.4 F or 38 C)?: No Have you tested positive for COVID-19: No Exposed to someone with COVID-19 in past 14 days?: No Do you have a sore throat?: No Do you have a cough?: No Do you have any weakness?: No Do you have any diarrhea?: No Are you experiencing any unusual bleeding?: No Do you have any muscle aches/pain?: No Do you have any abdominal pain?: No Are you experiencing loss of taste or smell?: No [facility] Anesthesia Checklist Patient Identification Patient Identification: Arm Band and Verbal (Name & ) Structural Data Admitted From: Home Planned Operative Procedure/s: colonscopy Consent for Planned Operative Procedure(s) Verified: Yes Verified Documents: Surgical Consent and History and Physical NPO Status Verified Time NPO: 00:00 Additional verifications Patient : No Anesthesia Reactions: No Airway Assessment Mallampati Score:: Class I Dentition: Edentulous Neurological Assessment Level of Consciousness: Awake, Alert and Appropriate Anesthesia Plan Anesthesia Risk discussed: Yes Anesthesia Plan: Verified ASA Class: II Anesthesia Type: MAC
--- NOTE | 2024-09-28 11:25 | P.PNANES_ITS ---
[facility] Disclaimer: The information contained in this section may have been updated after the patient was seen, as this information can be updated by other users. Medical History HFrEF (heart failure with reduced ejection fraction) Renal artery stenosis Globus sensation Dysphagia Heart attack Abnormal EKG Edema Palpitations Dyspnea Depression Hypothyroidism GERD (gastroesophageal reflux disease) History of [place] (myocardial infarction) Surgical History H/O right heart catheterization Family History Other Cancer Coronary artery disease Heart attack Hyperlipidemia Hypertension Thyroid disorder Social History Smoking Status: Current every day smoker tobacco type: cigarettes packs per day: 1 alcohol intake: never substance use type: denies use current occupational status: employed Travel in the last 8 weeks: None household members: spouse housing: house current occupational exposures/hazards: No caffeine: Yes Have you lived/traveled outside [place] in past 30 days?: No Contact w/someone who lives/traveled outside [place] past 30 days?: No Exposure to someone with infectious disease in past 14 days?: No Do you have a fever (greater than 100.4 F or 38 C)?: No Have you tested positive for COVID-19: No Exposed to someone with COVID-19 in past 14 days?: No Do you have a sore throat?: No Do you have a cough?: No Do you have any weakness?: No Do you have any diarrhea?: No Are you experiencing any unusual bleeding?: No Do you have any muscle aches/pain?: No Do you have any abdominal pain?: No Are you experiencing loss of taste or smell?: No [facility] Anesthesia Checklist Patient Identification Patient Identification: Arm Band and Verbal (Name & ) Structural Data Admitted From: Home Planned Operative Procedure/s: colonacopy Consent for Planned Operative Procedure(s) Verified: Yes Verified Documents: Surgical Consent NPO Status Verified Time NPO: 00:00 Additional verifications Anesthesia Reactions: No Airway Assessment Mallampati Score:: Class I Neurological Assessment Level of Consciousness: Awake, Alert and Appropriate Anesthesia Plan Anesthesia Risk discussed: Yes Anesthesia Plan: Verified ASA Class: II Anesthesia Type: MAC
--- NOTE | 2024-09-28 11:38 | P.HP_ITS ---
History of Present Illness *Admission Date: 09/28/24 *Reason for visit:: Screening for colon cancer *History of present illness: Mrs. Gonzalez is a 49-year-old female who is here for initial screening colonoscopy. The examination is deemed medically necessary for screening colonoscopy. The patient has been seen, interviewed and examined prior to the procedure by both myself and the anesthesia provider. [facility] Disclaimer: The information contained in this section may have been updated after the patient was seen, as this information can be updated by other users. Medical History HFrEF (heart failure with reduced ejection fraction) Renal artery stenosis Globus sensation Dysphagia Heart attack Abnormal EKG Edema Palpitations Dyspnea Depression Hypothyroidism GERD (gastroesophageal reflux disease) History of [place] (myocardial infarction) Surgical History H/O right heart catheterization Family History Other Cancer Coronary artery disease Heart attack Hyperlipidemia Hypertension Thyroid disorder Social History Smoking Status: Current every day smoker tobacco type: cigarettes packs per day: 1 alcohol intake: never substance use type: denies use current occupational status: employed Travel in the last 8 weeks: None household members: spouse housing: house current occupational exposures/hazards: No caffeine: Yes Have you lived/traveled outside [place] in past 30 days?: No Contact w/someone who lives/traveled outside [place] past 30 days?: No Exposure to someone with infectious disease in past 14 days?: No Do you have a fever (greater than 100.4 F or 38 C)?: No Have you tested positive for COVID-19: No Exposed to someone with COVID-19 in past 14 days?: No Do you have a sore throat?: No Do you have a cough?: No Do you have any weakness?: No Do you have any diarrhea?: No Are you experiencing any unusual bleeding?: No Do you have any muscle aches/pain?: No Do you have any abdominal pain?: No Are you experiencing loss of taste or smell?: No Other Medical History Have you received the Flu Vaccine for this season: No Have you received the Pneumonia Vaccine: No Review of Systems Review of Systems Review of systems (narrative): Negative *Cardiovascular Comments: Negative *Gastrointestinal Comments: Negative *Genitourinary Comments: Negative *Musculoskeletal Comments: Negative *Neurologic Comments: Negative Meds Home Medications and Allergies Home Medications ?Medication ?Instructions ?Recorded ?Confirmed ?Type aspirin 81 mg chewable tablet See Rx Instructions .Route 02/10/23 09/28/24 Rx .COMPLEX #90 tabs levonorgestrel (Mirena) 52 device intrauterine ONCE 02/10/23 09/28/24 History cholecalciferol (vitamin D3) 25 See Rx Instructions .Route 10/04/23 09/28/24 Rx mcg (1,000 unit) capsule (Vitamin .COMPLEX #90 caps D3) cyanocobalamin (vitamin B-12) See Rx Instructions .Route 10/04/23 09/28/24 Rx 5,000 mcg sublingual tablet .COMPLEX #90 tabs (Vitamin B-12) famotidine 20 mg tablet 20 mg PO DAILY #90 tabs 02/15/24 09/28/24 Rx thyroid (pork) 60 mg tablet See Rx Instructions .Route 02/15/24 09/28/24 Rx ([place] Thyroid) .COMPLEX #90 tabs umeclidinium 62.5 mcg-vilanterol See Rx Instructions .Route 02/15/24 09/28/24 Rx 25 mcg/actuation powdr for .COMPLEX #60 blisters inhalation (Anoro Ellipta) sodium,potassium,mag sulfates 17.5 See Rx Instructions PO .COMPLEX 09/14/24 09/28/24 Rx gram-3.13 gram-1.6 gram oral soln #354 mL (Suprep Bowel Prep Kit) losartan 100 1 tab PO DAILY #30 tabs 09/21/24 09/28/24 Rx mg-hydrochlorothiazide 12.5 mg tablet atorvastatin 20 mg tablet (Lipitor) See Rx Instructions .Route .COMPLEX 09/23/24 09/28/24 History clonazepam 0.5 mg tablet (Klonopin) 0.5 mg PO BID PRN anxiety 09/23/24 09/28/24 History escitalopram oxalate 20 mg tablet See Rx Instructions .Route .COMPLEX 09/23/24 09/28/24 History (Lexapro) New Prescriptions to Start Prescriptions: Allergies Allergy/AdvReac Type Severity Reaction Status Date / Time vortioxetine (From Allergy Intermediate Rash Verified 09/28/24 10:26 Trintellix) latex Allergy Unknown I-RASH Verified 09/28/24 10:26 hydroxyzine (From Vistaril) AdvReac dizzy Verified 09/28/24 10:26 metoprolol AdvReac vomiting Verified 09/28/24 10:26 Exam Data for Last 24 hours Vital signs and Labs for Last 24 Hours: Temp Pulse Resp BP Pulse Ox O2 Del Method 97.7 F 85 16 129/70 96 Room Air 09/28/24 10:31 09/28/24 10:31 09/28/24 10:31 09/28/24 10:31 09/28/24 10:31 09/28/24 10:31 Laboratory Results - last 24 hr 09/28/24 : Urine HCG, Qual Negative *Routine HEENT Exam Head: Present normocephalic Eye: Present EOMI and PERRL ENT: Present mucous membranes moist *Routine Neck Exam Neck: Present supple *Routine Respiratory Exam Respiratory: Present CTA bilaterally *Routine Cardiovascular Exam Cardiovascular: Present RRR *Routine Abdominal Exam Abdominal: Present soft and normoactive bowel sounds; Absent tenderness *Routine Rectal Exam Rectal:: deferred *Routine Genitalia Exam Genitalia:: deferred *Routine Extremities Exam Extremities: Absent cyanosis, clubbing or edema *Routine Skin Exam Skin: Present warm; Absent rash *Routine Neurological Exam Neurological: Present alert and oriented X3 Assessment and Plan *Assessment and plan (1) Screening for colon cancer: Status: Acute Category: Medical Code(s): Z12.11 - Encounter for screening for malignant neoplasm of colon Plan A/P: 1. Screening for colon cancer is the preprocedural diagnosis. The patient will be anesthetized/sedated using MAC sedation. The patient has been seen and examined. Cardiac and lung assessment prior to the examination is stable. Proceed with planned screening colonoscopy.
--- NOTE | 2024-09-28 11:41 | HMH.PROCNOTE ---
[facility] Procedure Note Date: 09/28/24 Time: 11:57 Procedure Note:: Colonoscopy Procedure Report: Colonoscopy with cold snare polypectomy Endoscopist: Otoniel Aguilar II, MD Referring physician: Kylie Cooley PA-C Date of Procedure: September 28, 2024 Equipment: Olympus 190 variable stiffness pediatric colonoscope Sedation: MAC sedation Indication: Mrs. Gonzalez is a 49-year-old female who is here for initial screening colonoscopy. She reports no abdominal pain, weight loss, change in her bowel habits or rectal bleeding. She reports no family history of colon cancer. Procedure: Prior to the procedure, a history and physical exam was performed, and patient's medications and allergies were reviewed. The risks, benefits and alternatives of the sedation and procedure were discussed with the patient. All questions were answered and informed consent was obtained. The patient was brought to the procedure room. Patient identification and proposed procedure were verified by the physician and the nurse. The patient was placed in a left lateral decubitus position and the scope was passed under direct vision. Throughout the procedure, the patient's blood pressure, pulse, and oxygen saturations were monitored continuously. The colonoscopy was accomplished without difficulty. The patient tolerated the procedure well. Findings: On digital rectal examination there was normal rectal tone. There were no external hemorrhoids. The colonoscope was introduced through the anal canal to the rectum and advanced to the cecum. The ileocecal valve and appendiceal orifice were identified. The scope was advanced a short distance into the ileum which appeared grossly normal. The scope was then withdrawn into the colon. There was a single ascending colon polyp (6 mm) and 2 very small hyperplastic appearing rectal polyps (3 and 3 mm)). These were removed via cold snare polypectomy. The remaining cecum, ascending, transverse, descending, sigmoid and rectum were grossly normal. There were no mucosal abnormalities identified. Upon retroflexion within the rectum there were grade 1-2 internal hemorrhoids. The preparation was excellent throughout with Mohler Preparation Score of 9. The cecal time was 12 minutes. Impression: 1. Ascending colon polyp (6 mm) 2. Diminutive rectal polyps x 2?hyperplastic appearing polyps (3 and 3 mm) Plan: I will follow-up the polyp histology and recommend repeat surveillance colonoscopy again in 7 years based upon the pathology.
[2024-09-28 12:02] VITALS: BP 85/54; PULSE 92; RESP 16; TEMP 36.4; O2SAT 93
[2024-09-28 12:12] VITALS: BP 116/80; PULSE 71; RESP 18; O2SAT 99
[2024-09-28 12:22] VITALS: BP 109/71; PULSE 74; RESP 18; O2SAT 98
[2024-09-28 12:32] VITALS: BP 115/82; PULSE 75; RESP 18; O2SAT 98
== END 2024-09-28 12:34 | disposition home or self-care (01) ==
PROVIDERS: PCP Physician Assistant; Visit Provider Internal Medicine Gastroenterology
PROC: 0DJD8ZZ Inspection of Lower Intestinal Tract, Via Natural or Artificial Opening Endoscopic (ICD-10-PCS; CPT 45378; principal; 2024-09-28 11:30)
DX: K63.5 Polyp of colon (principal); K62.1 Rectal polyp; Z12.11 Encounter for screening for malignant neoplasm of colon
CPT/HCPCS: 45385; 81025; J7120